=== PATIENT | male | born 1975 | race Two or more races ===

== ENCOUNTER 2019-05-13 23:44 | Inpatient (IN) | payer SELFPAY ==
[~2019-05-13] VITALS: Ht 182.9 cm; Wt 94.6 kg
[2019-05-14] VITALS (14 sets, daily range): BP systolic 91–117; BP diastolic 60–76
--- NOTE | 2019-05-14 00:05 | PHYS DOC ---
Past Medical History Past Medical History: No Pertinent History (JONH YOON APRN) Past Surgical History: No Surgical History (JONH YOON APRN) Alcohol Use: Occasionally Drug Use: None (JONH YOON APRN) Adult General Chief Complaint Chief Complaint: ABDOMINAL PAIN HPI HPI Patient is a 44 year old male who presents with last night began having right lower quadrant pain and vomiting. Patient currently rates his pain a 6 out of 10 and states it's a stabbing pain. Patient states it's right lower quadrant and it wraps around to his back. Patient states he has not had nothing to eat or drink at all today. (JONH YOON APRN) Review of Systems Review of Systems GI: RLQ abdominal pain that wraps around to Right flank, nausea, vomiting, denies bloody stools or diarrhea [] All other systems were reviewed and found to be within normal limits, except as documented in this note. (JONH YOON APRN) Current Medications Current Medications Current Medications Medications (Trade) Dose Ordered Sig/Kierra Start Time Stop Time Status Last Admin Dose Admin Fentanyl Citrate (Fentanyl 2ml Vial) 50 mcg 1X ONCE 05/14/19 00:30 05/14/19 00:18 DC 05/14/19 00:14 50 MCG Info (CONTRAST GIVEN -- Rx MONITORING) 1 each PRN DAILY PRN 05/14/19 00:15 05/16/19 00:14 Iohexol (Omnipaque 300 Mg/ml) 75 ml 1X ONCE 05/14/19 00:30 05/14/19 00:31 DC 05/14/19 00:54 75 ML Morphine Sulfate (Morphine Sulfate) 4 mg PRN Q2HR PRN 05/14/19 02:15 05/14/19 08:00 Ondansetron HCl (Zofran) 4 mg PRN Q8HRS PRN 05/14/19 02:15 05/14/19 08:00 Piperacillin Sod/ Tazobactam Sod 3.375 gm/Sodium Chloride 50 ml @ 100 mls/hr 1X ONCE 05/14/19 03:00 05/14/19 03:29 Sodium Chloride 1,000 ml @ 150 mls/hr Q6H40M 05/14/19 02:30 05/15/19 02:29 (MILLY AGUDELO MD) Allergies Allergies Allergies Coded Allergies Type Severity Reaction Last Updated Verified No Known Drug Allergies 12/14/15 No (MILLY AGUDELO MD) Physical Exam Physical Exam Constitutional: Well developed, well nourished, no acute distress, non-toxic appearance. [] Cardiovascular:Heart rate regular rhythm, no murmur [] Lungs & Thorax: Bilateral breath sounds clear to auscultation [] Abdomen: Bowel sounds normal, soft, RLQ tenderness, no masses, no pulsatile masses. [] Skin: Warm, dry, no erythema, no rash. [] Back: No tenderness, no CVA tenderness. [] Extremities: No tenderness, no cyanosis, no clubbing, ROM intact, no edema. [] Neurologic: Alert and oriented X 3, normal motor function, normal sensory func tion, no focal deficits noted. [] Psychologic: Affect normal, judgement normal, mood normal. [] (JONH YOON APRN) Current Patient Data Vital Signs Vital Signs Date Time Temp Pulse Resp B/P (MAP) Pulse Ox O2 Delivery O2 Flow Rate FiO2 05/14/19 00:14 16 95 Room Air 05/13/19 23:51 98.2 86 139/78 (98) 98.2 (MILLY AGUDELO MD) Lab Values Laboratory Tests Test 05/14/19 00:02 White Blood Count 12.1 x10^3/uL (4.0-11.0) H Red Blood Count 5.31 x10^6/uL (4.30-5.70) Hemoglobin 15.5 g/dL (13.0-17.5) Hematocrit 45.1 % (39.0-53.0) Mean Corpuscular Volume 85 fL (79-100) Mean Corpuscular Hemoglobin 29 pg (25-35) Mean Corpuscular Hemoglobin Concent 34 g/dL (31-37) Red Cell Distribution Width 14.0 % (11.5-14.5) Platelet Count 181 x10^3/uL (140-400) Neutrophils (%) (Auto) 77 % (31-73) H Lymphocytes (%) (Auto) 14 % (24-48) L Monocytes (%) (Auto) 8 % (0-9) Eosinophils (%) (Auto) 1 % (0-3) Basophils (%) (Auto) 1 % (0-3) Neutrophils # (Auto) 9.3 x10^3/uL (1.8-7.7) H Lymphocytes # (Auto) 1.7 x10^3/uL (1.0-4.8) Monocytes # (Auto) 1.0 x10^3/uL (0.0-1.1) Eosinophils # (Auto) 0.1 x10^3/uL (0.0-0.7) Basophils # (Auto) 0.1 x10^3/uL (0.0-0.2) Sodium Level 141 mmol/L (136-145) Potassium Level 3.8 mmol/L (3.5-5.1) Chloride Level 102 mmol/L (98-107) Carbon Dioxide Level 30 mmol/L (21-32) Anion Gap 9 (6-14) Blood Urea Nitrogen 14 mg/dL (8-26) Creatinine 0.9 mg/dL (0.7-1.3) Estimated GFR (Cockcroft-Gault) 92.5 BUN/Creatinine Ratio 16 (6-20) Glucose Level 93 mg/dL (70-99) Calcium Level 9.3 mg/dL (8.5-10.1) Total Bilirubin 1.3 mg/dL (0.2-1.0) H Aspartate Amino Transferase (AST) 16 U/L (15-37) Alanine Aminotransferase (ALT) 23 U/L (16-63) Alkaline Phosphatase 92 U/L (46-116) Total Protein 8.3 g/dL (6.4-8.2) H Albumin 4.1 g/dL (3.4-5.0) Albumin/Globulin Ratio 1.0 (1.0-1.7) Lipase 125 U/L (73-393) Laboratory Tests 05/14/19 00:02 Laboratory Tests 05/14/19 00:02 (MILLY AGUDELO MD) Lab Values Laboratory Tests Test 05/14/19 00:02 White Blood Count 12.1 x10^3/uL (4.0-11.0) H Red Blood Count 5.31 x10^6/uL (4.30-5.70) Hemoglobin 15.5 g/dL (13.0-17.5) Hematocrit 45.1 % (39.0-53.0) Mean Corpuscular Volume 85 fL (79-100) Mean Corpuscular Hemoglobin 29 pg (25-35) Mean Corpuscular Hemoglobin Concent 34 g/dL (31-37) Red Cell Distribution Width 14.0 % (11.5-14.5) Platelet Count 181 x10^3/uL (140-400) Neutrophils (%) (Auto) 77 % (31-73) H Lymphocytes (%) (Auto) 14 % (24-48) L Monocytes (%) (Auto) 8 % (0-9) Eosinophils (%) (Auto) 1 % (0-3) Basophils (%) (Auto) 1 % (0-3) Neutrophils # (Auto) 9.3 x10^3/uL (1.8-7.7) H Lymphocytes # (Auto) 1.7 x10^3/uL (1.0-4.8) Monocytes # (Auto) 1.0 x10^3/uL (0.0-1.1) Eosinophils # (Auto) 0.1 x10^3/uL (0.0-0.7) Basophils # (Auto) 0.1 x10^3/uL (0.0-0.2) Sodium Level 141 mmol/L (136-145) Potassium Level 3.8 mmol/L (3.5-5.1) Chloride Level 102 mmol/L (98-107) Carbon Dioxide Level 30 mmol/L (21-32) Anion Gap 9 (6-14) Blood Urea Nitrogen 14 mg/dL (8-26) Creatinine 0.9 mg/dL (0.7-1.3) Estimated GFR (Cockcroft-Gault) 92.5 BUN/Creatinine Ratio 16 (6-20) Glucose Level 93 mg/dL (70-99) Calcium Level 9.3 mg/dL (8.5-10.1) Total Bilirubin Pending Aspartate Amino Transferase (AST) Pending Alanine Aminotransferase (ALT) Pending Alkaline Phosphatase Pending Total Protein Pending Albumin Pending Albumin/Globulin Ratio Pending Lipase Pending Laboratory Tests 05/14/19 00:02 Laboratory Tests 05/14/19 00:02 (JONH YOON APRN) EKG EKG [] (JONH YOON APRN) Radiology/Procedures Radiology/Procedures [] (JONH YOON APRN) Radiology/Procedures [facility] [address] [place] [address] IMAGING REPORT Signed PATIENT: FRANK HUDSON ACCOUNT: [id number] : 1975 LOCATION: ER AGE: 44 SEX: M EXAM STATUS: REG ER ORD. PHYSICIAN: JONH YOON APRN REASON: RLQ PAIN PROCEDURE: CT ABD PELV W/ IV CONTRST ONLY EXAM: CT ABDOMEN/PELVIS WITH CONTRAST. HISTORY: Right lower quadrant pain. TECHNIQUE: Computed tomography of the abdomen and pelvis was performed after the intravenous administration of iodinated contrast. COMPARISON: None. FINDINGS: Lung windows through the visualized portions of the bases reveal mild atelectasis. Bone windows reveal no suspicious lesions. There are bilateral nondisplaced L5 pars interarticularis defects. The appendix is dilated with surrounding inflammation consistent with acute appendicitis. There is no drainable collection. There is no small bowel obstruction. There are no pathologically enlarged lymph nodes. The liver, gallbladder, pancreas, adrenal glands, spleen and kidneys are unremarkable. IMPRESSION: 1. Acute appendicitis. *One or more of the following individualized dose reduction techniques were utilized for this examination: 1. Automated exposure control. 2. Adjustment of the mA and/or kV according to patient size. 3. Use of iterative reconstruction technique. Electronically signed by: Ju Laws MD (05/14/2019 1:38 AM) [facility] DICTATED and SIGNED BY: JULIANNA LAWS MD DATE: 05/14/19 0138 (MILLY AGUDELO MD) Course & Med Decision Making Course & Med Decision Making Patient is a 44 year old male who presents with last night began having right lower quadrant pain and vomiting. Patient currently rates his pain a 6 out of 10 and states it's a stabbing pain. Patient states it's right lower quadrant and it wraps around to his back. Patient states he has not had nothing to eat or drink at all today. Alert and oriented. Skin pink warm and dry. Right lower quad rant tender to palpation. No rebound tenderness. No extremity edema. Lungs are clear to auscultation all lobes. No CVA tenderness. Speaks in full clear sentences. Patient denies taking any medications before he came today. Patient denies chest pain, shortness of air, fever, diarrhea, constipation, dysuria. 0030: Patient reported off to Dr Agudelo for continuation of care. (JONH YOON APRN) Course & Med Decision Making CT of abdomen showed acute appendicitis. Patient was provided with pain medication given a liter. on-call surgeon was consulted at 0203 and agreed with starting Zosyn and IV fluid.Patient requiring admission for further evaluation and treatment. Discussed with Dr. Coles who is in agreement with admission. Discussed findings and plan with patient and family, who acknowledge understanding and agreement. (MILLY AGUDELO MD) Dragon Disclaimer Dragon Disclaimer This electronic medical record was generated, in whole or in part, using a voice recognition dictation system. (JONH YOON APRN) Departure Departure Impression: Primary Impression: Acute appendicitis Disposition: ADMITTED INPATIENT (at 0 150) Admitting Physician: RICKIE (Dr. Coles accepted admission) (MILLY AGUDELO MD) Condition: IMPROVED Referrals: NO PCP (PCP) Problem Qualifiers Primary Impression: Acute appendicitis Acute appendicitis type: unspecified acute appendicitis type Qualified Codes: K35.80 - Unspecified acute appendicitis JONH YOON APRN May 14, 2019 00:05 MILLY AGUDELO MD May 14, 2019 01:59
[2019-05-14] MEDS ORDERED: CONTRAST GIVEN. MC PRN (00:15)
[2019-05-14 00:27] LABS: BASO # 0.1 x10^3/uL (0.0-0.2); BASO % 1 % (0-3); EOS # 0.1 x10^3/uL (0.0-0.7); EOS % 1 % (0-3); HEMATOCRIT 45.1 % (39.0-53.0); HEMOGLOBIN 15.5 g/dL (13.0-17.5); LYMPH # 1.7 x10^3/uL (1.0-4.8); LYMPH % 14 % (24-48); MEAN CORPUSCULAR HEMOGLOBIN 29 pg (25-35); MEAN CORPUSCULAR HGB CONC 34 g/dL (31-37); MEAN CORPUSCULAR VOLUME 85 fL (79-100); MONO % 8 % (0-9); NEUT # 9.3 x10^3/uL (1.8-7.7); NEUT % 77 % (31-73); PLATELET COUNT 181 x10^3/uL (140-400); RED BLOOD COUNT 5.31 x10^6/uL (4.30-5.70); WHITE BLOOD COUNT 12.1 x10^3/uL (4.0-11.0)
[2019-05-14 00:28] LABS: CALCIUM 9.3 mg/dL (8.5-10.1); CREATININE 0.9 mg/dL (0.7-1.3); GFR 92.5; POTASSIUM 3.8 mmol/L (3.5-5.1)
[2019-05-14] MEDS ORDERED: fentaNYL PF VIAL 100 MCG/2 ML VIAL IV ONE (00:30)
[2019-05-14] MEDS ORDERED: IOHEXOL 300 MG/ML 100ML VIAL. IV ONE ×2 (00:30→07:00)
[2019-05-14] MEDS ORDERED: ONDANSETRON PF 4 MG/2 ML VIAL. IV ONE (00:30)
[2019-05-14] MEDS ORDERED: IV NORMAL SALINE 1000ML BAG 1,000 ML IV SCH (00:30)
[2019-05-14 00:35] LABS: ALBUMIN 4.1 g/dL (3.4-5.0); TOTAL BILIRUBIN 1.3 mg/dL (0.2-1.0); TOTAL PROTEIN 8.3 g/dL (6.4-8.2)
[2019-05-14] MEDS ORDERED: IV NORMAL SALINE 1000ML BAG 1,000 ML IV ONE (01:00)
--- NOTE | 2019-05-14 01:40 | RAD ---
EXAM: CT ABDOMEN/PELVIS WITH CONTRAST. HISTORY: Right lower quadrant pain. TECHNIQUE: Computed tomography of the abdomen and pelvis was performed after the intravenous administration of iodinated contrast. COMPARISON: None. FINDINGS: Lung windows through the visualized portions of the bases reveal mild atelectasis. Bone windows reveal no suspicious lesions. There are bilateral nondisplaced L5 pars interarticularis defects. The appendix is dilated with surrounding inflammation consistent with acute appendicitis. There is no drainable collection. There is no small bowel obstruction. There are no pathologically enlarged lymph nodes. The liver, gallbladder, pancreas, adrenal glands, spleen and kidneys are unremarkable. IMPRESSION: 1. Acute appendicitis. *One or more of the following individualized dose reduction techniques were utilized for this examination: 1. Automated exposure control. 2. Adjustment of the mA and/or kV according to patient size. 3. Use of iterative reconstruction technique. Electronically signed by: Ju Laws MD (05/14/2019 1:38 AM) [facility]
[2019-05-14] MEDS ORDERED: MORPHINE SULFATE 4 MG/ML VIAL. IV PRN (02:15)
[2019-05-14] MEDS ORDERED: ONDANSETRON PF 4 MG/2 ML VIAL. IV PRN ×3 (02:15→11:15)
[2019-05-14] MEDS ORDERED: PIPERACILLIN/TAZOBACTAM 3.375 GM in IV NORMAL SALINE 50ML 50 ML IV ONE (03:00)
[2019-05-14] MEDS: IV NORMAL SALINE 1000ML BAG 1,000 ML IV SCH ×5 (03:28→22:30)
[2019-05-14] MEDS ORDERED: IOHEXOL 300 MG/ML 100ML VIAL. ONE (06:26)
[2019-05-14 06:41] LABS: BILIRUBIN,URINE NEGATIVE (NEG); CLARITY,URINE CLEAR; COLOR,URINE YELLOW; NITRITE,URINE NEGATIVE (NEG); PROTEIN,URINE NEGATIVE (NEG-TRACE)
[2019-05-14 06:48] LABS: BARBITURATES NEG (NEG); BENZODIAZEPINES NEG (NEG); CANNABINOIDS NEG (NEG); COCAINE NEG (NEG); METHADONE NEG (NEG); OPIATES NEG (NEG); PHENCYCLIDINE NEG (NEG)
[2019-05-14 06:51] LABS: AMPHETAMINE/METHAMPHETAMINE NEG (NEG)
[2019-05-14 07:14] LABS: SQUAMOUS EPITHELIAL CELL,UR OCC /LPF
[2019-05-14 07:15] LABS: BACTERIA,URINE FEW /HPF (0-FEW)
[2019-05-14] MEDS ORDERED: cefOXitin SODIUM IV Push 2 GM VIAL. IVP ONE (08:45)
[2019-05-14] MEDS ORDERED: FLU VAX QS 2019-20 (36MOS+)/PF 0.5 ML SYRINGE. VAX IM ONE (09:00)
--- NOTE | 2019-05-14 09:18 | PDOC2 ---
CONSULT Date of Consult Date of Consult DATE: 05/14/19 TIME: 09:15 Reason for Consult Reason for Consult: appendicitis Referring Physician Referring Physician: Dr. Coles Identification/Chief Complaint Chief Complaint RLQ abd pain Source Source: Chart review, Patient History of Present Illness Reason for Visit: 44 yo M with c/o abd pain localizing RLQ since 05/12. No previous episodes. Past Medical History Cardiovascular: No pertinent hx Past Surgical History Past Surgical History: No pertinent history Family History Family History: No Significant Social History No ALCOHOL: social Current Medications Current Medications Current Medications Sodium Chloride 1,000 ml @ 1,000 mls/hr Q1H IV Last administered on 05/14/19at 00:15; Start 05/14/19 at 00:30; Stop 05/14/19 at 01:29; Status DC Fentanyl Citrate (Fentanyl 2ml Vial) 50 mcg 1X ONCE IV Last administered on 05/14/19at 00:14; Start 05/14/19 at 00:30; Stop 05/14/19 at 00:18; Status DC Ondansetron HCl (Zofran) 4 mg 1X ONCE IV Last administered on 05/14/19at 00:14; Start 05/14/19 at 00:30; Stop 05/14/19 at 00:18; Status DC Iohexol (Omnipaque 300 Mg/ml) 75 ml 1X ONCE IV Last administered on 05/14/19at 00:54; Start 05/14/19 at 00:30; Stop 05/14/19 at 00:31; Status DC Info (CONTRAST GIVEN -- Rx MONITORING) 1 each PRN DAILY PRN MC SEE COMMENTS; Start 05/14/19 at 00:15; Stop 05/16/19 at 00:14 Sodium Chloride 1,000 ml @ 1,000 mls/hr 1X ONCE IV Last administered on 05/14/19at 01:11; Start 05/14/19 at 01:00; Stop 05/14/19 at 01:59; Status DC Ondansetron HCl (Zofran) 4 mg PRN Q8HRS PRN IV NAUSEA/VOMITING 1ST CHOICE; Start 05/14/19 at 02:15; Stop 05/14/19 at 08:00; Status DC Morphine Sulfate (Morphine Sulfate) 4 mg PRN Q2HR PRN IV SEVERE PAIN 7-10; Start 05/14/19 at 02:15; Stop 05/14/19 at 08:00; Status DC Sodium Chloride 1,000 ml @ 150 mls/hr Q6H40M IV Last administered on 05/14/19at 03:28; Start 05/14/19 at 02:30; Stop 05/15/19 at 02:29 Piperacillin Sod/ Tazobactam Sod 3.375 gm/Sodium Chloride 50 ml @ 100 mls/hr 1X ONCE IV Last administered on 05/14/19at 03:28; Start 05/14/19 at 03:00; Stop 05/14/19 at 03:29; Status DC Influenza Virus Vaccine Quadrival (Afluria Quad 2019-20 (3yr Up) Syringe) 0.5 ml ONCE ONCE VAX IM ; Start 05/14/19 at 09:00; Stop 05/14/19 at 09:01; Status DC Iohexol (Omnipaque 300 Mg/ml) 100 ml STK-MED ONCE .ROUTE ; Start 05/14/19 at 06:26; Stop 05/14/19 at 06:26; Status DC Iohexol (Omnipaque 300 Mg/ml) 75 ml 1X ONCE IV ; Start 05/14/19 at 07:00; Stop 05/14/19 at 07:01; Status DC Cefoxitin Sodium (Mefoxin) 2 gm 1X PREOP ONCE IVP ; Start 05/14/19 at 08:45; Stop 05/14/19 at 08:46; Status DC Active Scripts Active Reported No Known Medications Prior To Admisstion (Info) Each 1 Each 1X Allergies Allergies: Coded Allergies: No Known Drug Allergies (Unverified , 12/14/15) ROS Gastrointestinal: Yes Abdominal Pain Physical Exam General: Alert, Oriented X3, Cooperative, mild distress HEENT: Atraumatic, EOMI Abdomen: Soft, Other (TTP RLQ) Extremities: No clubbing, No cyanosis Skin: No rashes, No breakdown Neuro: Normal speech, Sensation intact Psych/Mental Status: Mental status NL, Mood NL Vitals VITALS Vital Signs Date Time Temp Pulse Resp B/P (MAP) Pulse Ox O2 Delivery O2 Flow Rate FiO2 05/14/19 08:09 Room Air 05/14/19 07:00 98.3 88 18 108/76 (87) 95 98.3 Labs Labs Laboratory Tests Test 05/14/19 00:02 05/14/19 06:15 White Blood Count 12.1 x10^3/uL (4.0-11.0) Red Blood Count 5.31 x10^6/uL (4.30-5.70) Hemoglobin 15.5 g/dL (13.0-17.5) Hematocrit 45.1 % (39.0-53.0) Mean Corpuscular Volume 85 fL (79-100) Mean Corpuscular Hemoglobin 29 pg (25-35) Mean Corpuscular Hemoglobin Concent 34 g/dL (31-37) Red Cell Distribution Width 14.0 % (11.5-14.5) Platelet Count 181 x10^3/uL (140-400) Neutrophils (%) (Auto) 77 % (31-73) Lymphocytes (%) (Auto) 14 % (24-48) Monocytes (%) (Auto) 8 % (0-9) Eosinophils (%) (Auto) 1 % (0-3) Basophils (%) (Auto) 1 % (0-3) Neutrophils # (Auto) 9.3 x10^3/uL (1.8-7.7) Lymphocytes # (Auto) 1.7 x10^3/uL (1.0-4.8) Monocytes # (Auto) 1.0 x10^3/uL (0.0-1.1) Eosinophils # (Auto) 0.1 x10^3/uL (0.0-0.7) Basophils # (Auto) 0.1 x10^3/uL (0.0-0.2) Sodium Level 141 mmol/L (136-145) Potassium Level 3.8 mmol/L (3.5-5.1) Chloride Level 102 mmol/L (98-107) Carbon Dioxide Level 30 mmol/L (21-32) Anion Gap 9 (6-14) Blood Urea Nitrogen 14 mg/dL (8-26) Creatinine 0.9 mg/dL (0.7-1.3) Estimated GFR (Cockcroft-Gault) 92.5 BUN/Creatinine Ratio 16 (6-20) Glucose Level 93 mg/dL (70-99) Calcium Level 9.3 mg/dL (8.5-10.1) Total Bilirubin 1.3 mg/dL (0.2-1.0) Aspartate Amino Transf (AST/SGOT) 16 U/L (15-37) Alanine Aminotransferase (ALT/SGPT) 23 U/L (16-63) Alkaline Phosphatase 92 U/L (46-116) Total Protein 8.3 g/dL (6.4-8.2) Albumin 4.1 g/dL (3.4-5.0) Albumin/Globulin Ratio 1.0 (1.0-1.7) Lipase 125 U/L (73-393) Urine Collection Type Unknown Urine Color Yellow Urine Clarity Clear Urine pH 6.0 Urine Specific [place] >=1.030 Urine Protein Negative mg/dL (NEG-TRACE) Urine Glucose (UA) Negative mg/dL (NEG) Urine Ketones (Stick) 15 mg/dL (NEG) Urine Blood Negative (NEG) Urine Nitrite Negative (NEG) Urine Bilirubin Negative (NEG) Urine Urobilinogen Dipstick 2.0 mg/dL (0.2 mg/dL) Urine Leukocyte Esterase Negative (NEG) Urine RBC 1-2 /HPF (0-2) Urine WBC 1-4 /HPF (0-4) Urine Squamous Epithelial Cells Occ /LPF Urine Bacteria Few /HPF (0-FEW) Urine Mucus Slight /LPF Urine Opiates Screen Neg (NEG) Urine Methadone Screen Neg (NEG) Urine Barbiturates Neg (NEG) Urine Phencyclidine Screen Neg (NEG) Urine Amphetamine/Methamphetamine Neg (NEG) Urine Benzodiazepines Screen Neg (NEG) Urine Cocaine Screen Neg (NEG) Urine Cannabinoids Screen Neg (NEG) Urine Ethyl Alcohol Neg (NEG) Laboratory Tests Test 05/14/19 00:02 05/14/19 06:15 White Blood Count 12.1 x10^3/uL (4.0-11.0) Red Blood Count 5.31 x10^6/uL (4.30-5.70) Hemoglobin 15.5 g/dL (13.0-17.5) Hematocrit 45.1 % (39.0-53.0) Mean Corpuscular Volume 85 fL (79-100) Mean Corpuscular Hemoglobin 29 pg (25-35) Mean Corpuscular Hemoglobin Concent 34 g/dL (31-37) Red Cell Distribution Width 14.0 % (11.5-14.5) Platelet Count 181 x10^3/uL (140-400) Neutrophils (%) (Auto) 77 % (31-73) Lymphocytes (%) (Auto) 14 % (24-48) Monocytes (%) (Auto) 8 % (0-9) Eosinophils (%) (Auto) 1 % (0-3) Basophils (%) (Auto) 1 % (0-3) Neutrophils # (Auto) 9.3 x10^3/uL (1.8-7.7) Lymphocytes # (Auto) 1.7 x10^3/uL (1.0-4.8) Monocytes # (Auto) 1.0 x10^3/uL (0.0-1.1) Eosinophils # (Auto) 0.1 x10^3/uL (0.0-0.7) Basophils # (Auto) 0.1 x10^3/uL (0.0-0.2) Sodium Level 141 mmol/L (136-145) Potassium Level 3.8 mmol/L (3.5-5.1) Chloride Level 102 mmol/L (98-107) Carbon Dioxide Level 30 mmol/L (21-32) Anion Gap 9 (6-14) Blood Urea Nitrogen 14 mg/dL (8-26) Creatinine 0.9 mg/dL (0.7-1.3) Estimated GFR (Cockcroft-Gault) 92.5 BUN/Creatinine Ratio 16 (6-20) Glucose Level 93 mg/dL (70-99) Calcium Level 9.3 mg/dL (8.5-10.1) Total Bilirubin 1.3 mg/dL (0.2-1.0) Aspartate Amino Transf (AST/SGOT) 16 U/L (15-37) Alanine Aminotransferase (ALT/SGPT) 23 U/L (16-63) Alkaline Phosphatase 92 U/L (46-116) Total Protein 8.3 g/dL (6.4-8.2) Albumin 4.1 g/dL (3.4-5.0) Albumin/Globulin Ratio 1.0 (1.0-1.7) Lipase 125 U/L (73-393) Urine Collection Type Unknown Urine Color Yellow Urine Clarity Clear Urine pH 6.0 Urine Specific [place] >=1.030 Urine Protein Negative mg/dL (NEG-TRACE) Urine Glucose (UA) Negative mg/dL (NEG) Urine Ketones (Stick) 15 mg/dL (NEG) Urine Blood Negative (NEG) Urine Nitrite Negative (NEG) Urine Bilirubin Negative (NEG) Urine Urobilinogen Dipstick 2.0 mg/dL (0.2 mg/dL) Urine Leukocyte Esterase Negative (NEG) Urine RBC 1-2 /HPF (0-2) Urine WBC 1-4 /HPF (0-4) Urine Squamous Epithelial Cells Occ /LPF Urine Bacteria Few /HPF (0-FEW) Urine Mucus Slight /LPF Urine Opiates Screen Neg (NEG) Urine Methadone Screen Neg (NEG) Urine Barbiturates Neg (NEG) Urine Phencyclidine Screen Neg (NEG) Urine Amphetamine/Methamphetamine Neg (NEG) Urine Benzodiazepines Screen Neg (NEG) Urine Cocaine Screen Neg (NEG) Urine Cannabinoids Screen Neg (NEG) Urine Ethyl Alcohol Neg (NEG) Images Images CT c/w appendicitis Assessment/Plan Assessment/Plan appendicitis IV abx started with some improvement TO OR for laparoscopic versus open appendectomy. R/R/B/A d/w pt. Risks, including, but not limited to: bleeding, infection, damage to surrounding structures, risk of anesthesia, risk of open, risk . He appears to understand, his questions are answered and he elects to proceed. Thanks for consult! REGGIE LEMONS MD May 14, 2019 09:18
[2019-05-14] MEDS ORDERED: fentaNYL PF VIAL 100 MCG/2 ML VIAL IV PRN ×2 (09:30)
[2019-05-14] MEDS ORDERED: PROCHLORPERAZINE 10 MG/2 ML VIAL. IV PRN (09:30)
[2019-05-14] MEDS ORDERED: HYDROmorphone 2 MG/ML VIAL IV PRN (09:30)
[2019-05-14] MEDS ORDERED: IV RINGERS,LACTATED 1000ML 1,000 ML IV SCH (09:30)
[2019-05-14] MEDS ORDERED: LIDOCAINE 1% PF 2 ML VIAL. ID PRN (09:30)
[2019-05-14] MEDS ORDERED: MORPHINE SULFATE 2 MG/ML VIAL. IV PRN ×2 (09:30→11:15)
[2019-05-14] MEDS ORDERED: PROPOFOL 20 ML IV ONE (09:40)
[2019-05-14] MEDS ORDERED: fentaNYL PF VIAL 100 MCG/2 ML VIAL ONE ×2 (09:40→11:19)
[2019-05-14] MEDS ORDERED: ROCURONIUM 50 MG/5 ML VIAL. ONE (09:40)
[2019-05-14] MEDS ORDERED: LIDOCAINE 2% PF 5 ML VIAL. ONE (09:40)
[2019-05-14] MEDS ORDERED: SUCCINYLCHOLINE 200 MG/10 ML VIAL. ONE (09:40)
[2019-05-14] MEDS ORDERED: BUPIVACAINE MPF 0.5% 30 ML VIAL. ONE (09:42)
[2019-05-14] MEDS ORDERED: DESFLURANE 31 TO 60 MINUTES IH ONE (10:16)
[2019-05-14] MEDS ORDERED: DEXAMETHASONE SOD PHOS 4 MG/ML VIAL ONE (10:16)
[2019-05-14] MEDS ORDERED: GLYCOPYRROLATE 1 MG/5 ML VIAL. ONE (10:25)
[2019-05-14] MEDS ORDERED: NEOSTIGMINE METHYLSULFATE 5 MG/5 ML SYRINGE. ONE (10:26)
--- NOTE | 2019-05-14 10:41 | PDOC1 ---
History and Physical Date of Admission Date of Admission DATE: 05/14/19 TIME: 10:40 Identification/Chief Complaint Chief Complaint seen in er , 44 year old male who presents with last night began having right lower quadrant pain and vomiting. ct c/w acute appendicitis Past Medical History Past Medical History Past Medical History: No Pertinent History Past Surgical History: No Surgical History Alcohol Use: Occasionally Drug Use: None fhx htn Cardiovascular: No pertinent hx Past Surgical History Past Surgical History: No pertinent history Family History Family History: No Significant, Hypertension Social History Smoke: No ALCOHOL: social Drugs: None Current Medications Current Medications Current Medications Sodium Chloride 1,000 ml @ 1,000 mls/hr Q1H IV Last administered on 05/14/19at 00:15; Start 05/14/19 at 00:30; Stop 05/14/19 at 01:29; Status DC Fentanyl Citrate (Fentanyl 2ml Vial) 50 mcg 1X ONCE IV Last administered on 05/14/19at 00:14; Start 05/14/19 at 00:30; Stop 05/14/19 at 00:18; Status DC Ondansetron HCl (Zofran) 4 mg 1X ONCE IV Last administered on 05/14/19at 00:14; Start 05/14/19 at 00:30; Stop 05/14/19 at 00:18; Status DC Iohexol (Omnipaque 300 Mg/ml) 75 ml 1X ONCE IV Last administered on 05/14/19at 00:54; Start 05/14/19 at 00:30; Stop 05/14/19 at 00:31; Status DC Info (CONTRAST GIVEN -- Rx MONITORING) 1 each PRN DAILY PRN MC SEE COMMENTS; Benedict tart 05/14/19 at 00:15; Stop 05/16/19 at 00:14 Sodium Chloride 1,000 ml @ 1,000 mls/hr 1X ONCE IV Last administered on 05/14/19at 01:11; Start 05/14/19 at 01:00; Stop 05/14/19 at 01:59; Status DC Ondansetron HCl (Zofran) 4 mg PRN Q8HRS PRN IV NAUSEA/VOMITING 1ST CHOICE; Start 05/14/19 at 02:15; Stop 05/14/19 at 08:00; Status DC Morphine Sulfate (Morphine Sulfate) 4 mg PRN Q2HR PRN IV SEVERE PAIN 7-10; Start 05/14/19 at 02:15; Stop 05/14/19 at 08:00; Status DC Sodium Chloride 1,000 ml @ 150 mls/hr Q6H40M IV Last administered on 05/14/19at 03:28; Start 05/14/19 at 02:30; Stop 05/15/19 at 02:29 Piperacillin Sod/ Tazobactam Sod 3.375 gm/Sodium Chloride 50 ml @ 100 mls/hr 1X ONCE IV Last administered on 05/14/19at 03:28; Start 05/14/19 at 03:00; Stop 05/14/19 at 03:29; Status DC Influenza Virus Vaccine Quadrival (Afluria Quad 2019-20 (3yr Up) Syringe) 0.5 ml ONCE ONCE VAX IM ; Start 05/14/19 at 09:00; Stop 05/14/19 at 09:01; Status DC Iohexol (Omnipaque 300 Mg/ml) 100 ml STK-MED ONCE .ROUTE ; Start 05/14/19 at 06:26; Stop 05/14/19 at 06:26; Status DC Iohexol (Omnipaque 300 Mg/ml) 75 ml 1X ONCE IV ; Start 05/14/19 at 07:00; Stop 05/14/19 at 07:01; Status DC Cefoxitin Sodium (Mefoxin) 2 gm 1X PREOP ONCE IVP ; Start 05/14/19 at 08:45; Stop 05/14/19 at 08:46; Status DC Ondansetron HCl (Zofran) 4 mg PRN Q6HRS PRN IV NAUSEA/VOMITING; Start 05/14/19 at 09:30; Stop 05/15/19 at 09:29 Fentanyl Citrate (Fentanyl 2ml Vial) 25 mcg PRN Q5MIN PRN IV MILD PAIN 1-3; Start 05/14/19 at 09:30; Stop 05/15/19 at 09:29 Fentanyl Citrate (Fentanyl 2ml Vial) 50 mcg PRN Q5MIN PRN IV MODERATE TO SEVERE PAIN; Start 05/14/19 at 09:30; Stop 05/15/19 at 09:29 Morphine Sulfate (Morphine Sulfate) 1 mg PRN Q10MIN PRN IV SEVERE PAIN 7-10; Start 05/14/19 at 09:30; Stop 05/15/19 at 09:29 Ringer's Solution 1,000 ml @ 30 mls/hr Q24H IV ; Start 05/14/19 at 09:30; Stop 05/14/19 at 21:29 Lidocaine HCl (Xylocaine-Mpf 1% 2ml Vial) 2 ml PRN 1X PRN ID PRIOR TO IV START; Start 05/14/19 at 09:30; Stop 05/15/19 at 09:29 Hydromorphone HCl (Dilaudid) 0.5 mg PRN Q10MIN PRN IV SEV PAIN, Second choice; Start 05/14/19 at 09:30; Stop 05/15/19 at 09:29 Prochlorperazine Edisylate (Compazine) 5 mg PACU PRN PRN IV NAUSEA, MRX1; Start 05/14/19 at 09:30; Stop 05/15/19 at 09:29 Propofol 20 ml @ As Directed STK-MED ONCE IV ; Start 05/14/19 at 09:40; Stop 05/14/19 at 09:40; Status DC Lidocaine HCl (Lidocaine Pf 2% Vial) 5 ml STK-MED ONCE .ROUTE ; Start 05/14/19 at 09:40; Stop 05/14/19 at 09:40; Status DC Fentanyl Citrate (Fentanyl 2ml Vial) 100 mcg STK-MED ONCE .ROUTE ; Start 05/14/19 at 09:40; Stop 05/14/19 at 09:40; Status DC Succinylcholine Chloride (Anectine) 200 mg STK-MED ONCE .ROUTE ; Start 05/14/19 at 09:40; Stop 05/14/19 at 09:40; Status DC Rocuronium Hope (Zemuron) 50 mg STK-MED ONCE .ROUTE ; Start 05/14/19 at 09:40; Stop 05/14/19 at 09:40; Status DC Bupivacaine HCl (Sensorcaine Mpf 0.5%) 30 ml STK-MED ONCE .ROUTE ; Start 05/14/19 at 09:42; Stop 05/14/19 at 09:43; Status DC Dexamethasone Sodium Phosphate (Decadron) 4 mg STK-MED ONCE .ROUTE ; Start 05/14/19 at 10:16; Stop 05/14/19 at 10:17; Status DC Desflurane (Suprane) 30 ml STK-MED ONCE IH ; Start 05/14/19 at 10:16; Stop 05/14/19 at 10:17; Status DC Glycopyrrolate (Robinul) 1 mg STK-MED ONCE .ROUTE ; Start 05/14/19 at 10:25; Stop 05/14/19 at 10:26; Status DC Neostigmine Methylsulfate (Neostigmine Methylsulfate) 5 mg STK-MED ONCE .ROUTE ; Start 05/14/19 at 10:26; Stop 05/14/19 at 10:26; Status DC Active Scripts Active Reported No Known Medications Prior To Admisstion (Info) Each 1 Each MC 1X Allergies Allergies: Coded Allergies: No Known Drug Allergies (Unverified , 12/14/15) ROS General: No: Chills, Night Sweats, Fatigue, Malaise, Appetite, Other PSYCHOLOGICAL ROS: No: Anxiety, Behavioral Disorder, Concentration difficultie, Decreased libido, Depression, Disorientation, Hallucinations, Hostility, Irritablity, Memory difficulties, Mood Swings, Obsessive thoughts, Physical abuse, Sexual abuse, Sleep disturbances, Suicidal ideation, Other Eyes: No Blurry vision, No Decreased vision, No Double vision, No Dry eyes, No Excessive tearing, No Eye Pain, No Itchy Eyes, No Loss of vision, No Photophobia , No Scotomata, No Uses contacts, No Uses glasses, No Other HEENT: No: Heacaches, Visual Changes, Hearing change, Nasal congestion, Nasal discharge, Oral lesions, Sinus pain, Sore Throat, Epistaxis, Sneezing, Snoring, Tinnitus, Vertigo, Vocal changes, Other ALLERGY AND IMMUNOLOGY: No: Hives, Insect Bite Sensitivity, Itchy/Watery Eyes, Nasal Congestion, Post Nasal Drip, Seasonal Allergies, Other Hematological and Lymphatic: No: Bleeding Problems, Blood Clots, Blood Transfusions, Brusing, Night Sweats, Pallor, Swollen Lymph Nodes, Other ENDOCRINE: No: Breast Changes, Galactorrhea, Hair Pattern Changes, Hot Flashes, Malaise/lethargy, Mood Swings, Palpitations, Polydipsia/polyuria, Skin Changes, Temperature Intolerance, Unexpected Weight Changes, Other Breast: No New/Changing Breast Lumps, No Nipple changes, No Nipple discharge, No Other Respiratory: No: Cough, Hemoptysis, Orthopnea, Pleuritic Pain, Shortness of breath, SOB with excertion, Sputum Changes, Stridor, Tachypnea, Wheezing, Other Gastrointestinal: Yes Nausea, Yes Abdominal Pain; No Vomiting, No Diarrhea, No Constipation, No Melena, No Hematochezia, No Other Musculoskeletal: No Gait Disturbance, No Joint Pain, No Joint Stiffness, No Joint Swelling, No Muscle Pain, No Muscular Weakness, No Pain In:, No Swelling In:, No Other Neurological: No Behavorial Changes, No Bowel/Bladder ControlChng, No Confusion, No Dizziness, No Gait Disturbance, No Headaches, No Impaired Coord/balance, No Memory Loss, No Numbness/Tingling, No Seizures, No Speech Problems, No Tremors, No Visual Changes, No Weakness, No Other Skin: No Dry Skin, No Eczema, No Hair Changes, No Lumps, No Mole Changes, No Mottling, No Nail Changes, No Pruritus, No Rash, No Skin Lesion Changes, No Other, No Acne Physical Exam Physical Exam Physical Exam Physical Exam Constitutional: Well developed, well nourished, no acute distress, non-toxic appearance. [] Cardiovascular:Heart rate regular rhythm, no murmur [] Lungs & Thorax: Bilateral breath sounds clear to auscultation [] Abdomen: Bowel sounds normal, soft, RLQ tenderness, no masses, no pulsatile masses. [] Skin: Warm, dry, no erythema, no rash. [] Back: No tenderness, no CVA tenderness. [] Extremities: No tenderness, no cyanosis, no clubbing, ROM intact, no edema. [] Neurologic: Alert and oriented X 3, normal motor function, normal sensory function, no focal deficits noted. [] Psychologic: Affect normal, judgement normal, mood normal. [] General: Cooperative HEENT: Atraumatic, EOMI, Mucous membr. moist/pink Lungs: Clear to auscultation, Normal air movement Heart: RRR, no thrills PELVIC: Examination not indicated Extremities: No cyanosis Neuro: Normal speech, Cranial nerves 3-12 NL Psych/Mental Status: Mental status NL, Mood NL Vitals Vitals Vital Signs Date Time Temp Pulse Resp B/P (MAP) Pulse Ox O2 Delivery O2 Flow Rate FiO2 05/14/19 08:09 Room Air 05/14/19 07:00 98.3 88 18 108/76 (87) 95 98.3 Labs Labs Laboratory Tests Test 05/14/19 00:02 05/14/19 06:15 White Blood Count 12.1 x10^3/uL (4.0-11.0) Red Blood Count 5.31 x10^6/uL (4.30-5.70) Hemoglobin 15.5 g/dL (13.0-17.5) Hematocrit 45.1 % (39.0-53.0) Mean Corpuscular Volume 85 fL (79-100) Mean Corpuscular Hemoglobin 29 pg (25-35) Mean Corpuscular Hemoglobin Concent 34 g/dL (31-37) Red Cell Distribution Width 14.0 % (11.5-14.5) Platelet Count 181 x10^3/uL (140-400) Neutrophils (%) (Auto) 77 % (31-73) Lymphocytes (%) (Auto) 14 % (24-48) Monocytes (%) (Auto) 8 % (0-9) Eosinophils (%) (Auto) 1 % (0-3) Basophils (%) (Auto) 1 % (0-3) Neutrophils # (Auto) 9.3 x10^3/uL (1.8-7.7) Lymphocytes # (Auto) 1.7 x10^3/uL (1.0-4.8) Monocytes # (Auto) 1.0 x10^3/uL (0.0-1.1) Eosinophils # (Auto) 0.1 x10^3/uL (0.0-0.7) Basophils # (Auto) 0.1 x10^3/uL (0.0-0.2) Sodium Level 141 mmol/L (136-145) Potassium Level 3.8 mmol/L (3.5-5.1) Chloride Level 102 mmol/L (98-107) Carbon Dioxide Level 30 mmol/L (21-32) Anion Gap 9 (6-14) Blood Urea Nitrogen 14 mg/dL (8-26) Creatinine 0.9 mg/dL (0.7-1.3) Estimated GFR (Cockcroft-Gault) 92.5 BUN/Creatinine Ratio 16 (6-20) Glucose Level 93 mg/dL (70-99) Calcium Level 9.3 mg/dL (8.5-10.1) Total Bilirubin 1.3 mg/dL (0.2-1.0) Aspartate Amino Transf (AST/SGOT) 16 U/L (15-37) Alanine Aminotransferase (ALT/SGPT) 23 U/L (16-63) Alkaline Phosphatase 92 U/L (46-116) Total Protein 8.3 g/dL (6.4-8.2) Albumin 4.1 g/dL (3.4-5.0) Albumin/Globulin Ratio 1.0 (1.0-1.7) Lipase 125 U/L (73-393) Urine Collection Type Unknown Urine Color Yellow Urine Clarity Clear Urine pH 6.0 Urine Specific [place] >=1.030 Urine Protein Negative mg/dL (NEG-TRACE) Urine Glucose (UA) Negative mg/dL (NEG) Urine Ketones (Stick) 15 mg/dL (NEG) Urine Blood Negative (NEG) Urine Nitrite Negative (NEG) Urine Bilirubin Negative (NEG) Urine Urobilinogen Dipstick 2.0 mg/dL (0.2 mg/dL) Urine Leukocyte Esterase Negative (NEG) Urine RBC 1-2 /HPF (0-2) Urine WBC 1-4 /HPF (0-4) Urine Squamous Epithelial Cells Occ /LPF Urine Bacteria Few /HPF (0-FEW) Urine Mucus Slight /LPF Urine Opiates Screen Neg (NEG) Urine Methadone Screen Neg (NEG) Urine Barbiturates Neg (NEG) Urine Phencyclidine Screen Neg (NEG) Urine Amphetamine/Methamphetamine Neg (NEG) Urine Benzodiazepines Screen Neg (NEG) Urine Cocaine Screen Neg (NEG) Urine Cannabinoids Screen Neg (NEG) Urine Ethyl Alcohol Neg (NEG) Laboratory Tests Test 05/14/19 00:02 05/14/19 06:15 White Blood Count 12.1 x10^3/uL (4.0-11.0) Red Blood Count 5.31 x10^6/uL (4.30-5.70) Hemoglobin 15.5 g/dL (13.0-17.5) Hematocrit 45.1 % (39.0-53.0) Mean Corpuscular Volume 85 fL (79-100) Mean Corpuscular Hemoglobin 29 pg (25-35) Mean Corpuscular Hemoglobin Concent 34 g/dL (31-37) Red Cell Distribution Width 14.0 % (11.5-14.5) Platelet Count 181 x10^3/uL (140-400) Neutrophils (%) (Auto) 77 % (31-73) Lymphocytes (%) (Auto) 14 % (24-48) Monocytes (%) (Auto) 8 % (0-9) Eosinophils (%) (Auto) 1 % (0-3) Basophils (%) (Auto) 1 % (0-3) Neutrophils # (Auto) 9.3 x10^3/uL (1.8-7.7) Lymphocytes # (Auto) 1.7 x10^3/uL (1.0-4.8) Monocytes # (Auto) 1.0 x10^3/uL (0.0-1.1) Eosinophils # (Auto) 0.1 x10^3/uL (0.0-0.7) Basophils # (Auto) 0.1 x10^3/uL (0.0-0.2) Sodium Level 141 mmol/L (136-145) Potassium Level 3.8 mmol/L (3.5-5.1) Chloride Level 102 mmol/L (98-107) Carbon Dioxide Level 30 mmol/L (21-32) Anion Gap 9 (6-14) Blood Urea Nitrogen 14 mg/dL (8-26) Creatinine 0.9 mg/dL (0.7-1.3) Estimated GFR (Cockcroft-Gault) 92.5 BUN/Creatinine Ratio 16 (6-20) Glucose Level 93 mg/dL (70-99) Calcium Level 9.3 mg/dL (8.5-10.1) Total Bilirubin 1.3 mg/dL (0.2-1.0) Aspartate Amino Transf (AST/SGOT) 16 U/L (15-37) Alanine Aminotransferase (ALT/SGPT) 23 U/L (16-63) Alkaline Phosphatase 92 U/L (46-116) Total Protein 8.3 g/dL (6.4-8.2) Albumin 4.1 g/dL (3.4-5.0) Albumin/Globulin Ratio 1.0 (1.0-1.7) Lipase 125 U/L (73-393) Urine Collection Type Unknown Urine Color Yellow Urine Clarity Clear Urine pH 6.0 Urine Specific [place] >=1.030 Urine Protein Negative mg/dL (NEG-TRACE) Urine Glucose (UA) Negative mg/dL (NEG) Urine Ketones (Stick) 15 mg/dL (NEG) Urine Blood Negative (NEG) Urine Nitrite Negative (NEG) Urine Bilirubin Negative (NEG) Urine Urobilinogen Dipstick 2.0 mg/dL (0.2 mg/dL) Urine Leukocyte Esterase Negative (NEG) Urine RBC 1-2 /HPF (0-2) Urine WBC 1-4 /HPF (0-4) Urine Squamous Epithelial Cells Occ /LPF Urine Bacteria Few /HPF (0-FEW) Urine Mucus Slight /LPF Urine Opiates Screen Neg (NEG) Urine Methadone Screen Neg (NEG) Urine Barbiturates Neg (NEG) Urine Phencyclidine Screen Neg (NEG) Urine Amphetamine/Methamphetamine Neg (NEG) Urine Benzodiazepines Screen Neg (NEG) Urine Cocaine Screen Neg (NEG) Urine Cannabinoids Screen Neg (NEG) Urine Ethyl Alcohol Neg (NEG) Images Images EXAM: CT ABDOMEN/PELVIS WITH CONTRAST. HISTORY: Right lower quadrant pain. TECHNIQUE: Computed tomography of the abdomen and pelvis was performed after the intravenous administration of iodinated contrast. COMPARISON: None. FINDINGS: Lung windows through the visualized portions of the bases reveal mild atelectasis. Bone windows reveal no suspicious lesions. There are bilateral nondisplaced L5 pars interarticularis defects. The appendix is dilated with surrounding inflammation consistent with acute appendicitis. There is no drainable collection. There is no small bowel obstruction. There are no pathologically enlarged lymph nodes. The liver, gallbladder, pancreas, adrenal glands, spleen and kidneys are unremarkable. IMPRESSION: 1. Acute appendicitis. *One or more of the following individualized dose reduction techniques were utilized for this examination: 1. Automated exposure control. 2. Adjustment of the mA and/or kV according to patient size. 3. Use of iterative reconstruction technique. Electronically signed by: Ju Laws MD (05/14/2019 1:38 AM) [facility] DICTATED and SIGNED BY: JULIANNA LAWS MD DATE: 05/14/19 0138 VTE Prophylaxis Ordered VTE Prophylaxis Devices: Yes VTE Pharmacological Prophylaxi: Yes Assessment/Plan Assessment/Plan Assessment/Plan acute appendicitis on ct , The appendix is dilated with surrounding inflammation consistent with acute appendicitis. There is no drainable collection. plan admit general surgery consult npo 59 min pt exam, chart review, > 50% of time spent with exam, chart review, pt care coordination Pre-Op Diagnosis: Appendicitis Post-Op Diagnosis: same with localized peritonitis Procedure Performed: laparoscopic appendectomy Surgeon: Martinez Oconnor Anesthesia Type: GETA plus local Blood Loss: 50 Specimans Obtained: appendix Findings: retrocecal appendix with localized peritonitis, no obvious perforation Complications: none LENY ARGUELLO MD May 14, 2019 10:41
--- NOTE | 2019-05-14 11:08 | PDOC4 ---
OPERATIVE NOTE Date: Date: May 14, 2019 Pre-Op Diagnosis: Appendicitis Post-Op Diagnosis: same with localized peritonitis Procedure Performed: laparoscopic appendectomy Surgeon: Martinez Lemons Anesthesia Type: GETA plus local Blood Loss: 50 Specimans Obtained: appendix Findings: retrocecal appendix with localized peritonitis, no obvious perforation Complications: none Operative Note: After obtaining informed consent, patient was taken to Or, induced under GETA and prepped in the usual fashion. 5 mm port placed LLQ and suprapubic, 12 port placed umbilical, all under laparoscopic guidance. Abdominal cavity was explored and otherwise unremarkable. Appendix was retrocecal in nature. It was carefully dissected out. Defect created in mesoappendix. General load RYAN taken across base of appendix. Vascular load taken across mesoappendix. Appendix placed in bag, delivered and sent to pathology for evaluation. Copious irrigation. No evidence of bleeding or other pathology. Ports removed without bleeding. Fascia repaired with 0 vicryl. Skin repaired with 4 0 monocryl. Dressing placed. Patient tolerated procedure well and sent to PACU in stable condition. All counts correct. Wound class is 4, dirty. REGGIE LEMONS MD May 14, 2019 11:08
[2019-05-14] MEDS ORDERED: 0.9 % SODIUM CHLORIDE 10 ML DISP.SYRIN. IV PRN (11:15)
[2019-05-14] MEDS ORDERED: NALOXONE 0.4 MG/ML VIAL. IV PRN (11:15)
[2019-05-14] MEDS ORDERED: PROCHLORPERAZINE 10 MG/2 ML VIAL. ONE (11:42)
[2019-05-14] MEDS: IV RINGERS,LACTATED 1000ML 1,000 ML IV SCH ×2 (12:23→23:39)
[2019-05-14] MEDS: KETOROLAC 15 MG/ML VIAL. IV PRN (12:24)
[2019-05-14] MEDS: PIPERACILLIN/TAZOBACTAM 3.375 GM in IV NORMAL SALINE 50ML 50 ML IV SCH ×2 (16:03→23:39)
[2019-05-14] MEDS: HYDROcodone/APAP 5/325MG 1 TAB TABLET PO PRN (16:08)
[2019-05-14] MEDS: DOCUSATE SODIUM 100 MG CAPSULE. PO SCH (20:55)
[2019-05-15] MEDS: HYDROcodone/APAP 5/325MG 1 TAB TABLET PO PRN ×3 (02:54→20:23)
[2019-05-15 03:00] VITALS: BP 100/66
[2019-05-15] MEDS: PIPERACILLIN/TAZOBACTAM 3.375 GM in IV NORMAL SALINE 50ML 50 ML IV SCH ×3 (05:54→17:46)
[2019-05-15 05:59] LABS: BASO % 0 % (0-3); EOS % 0 % (0-3); HEMATOCRIT 36.8 % (39.0-53.0); HEMOGLOBIN 12.6 g/dL (13.0-17.5); LYMPH # 1.1 x10^3/uL (1.0-4.8); LYMPH % 14 % (24-48); MEAN CORPUSCULAR HEMOGLOBIN 30 pg (25-35); MEAN CORPUSCULAR HGB CONC 34 g/dL (31-37); MEAN CORPUSCULAR VOLUME 87 fL (79-100); MONO # 0.5 x10^3/uL (0.0-1.1); MONO % 6 % (0-9); NEUT # 6.4 x10^3/uL (1.8-7.7); NEUT % 80 % (31-73); PLATELET COUNT 143 x10^3/uL (140-400); RED BLOOD COUNT 4.25 x10^6/uL (4.30-5.70); RED CELL DISTRIBUTION WIDTH 14.1 % (11.5-14.5)
[2019-05-15 06:19] LABS: CALCIUM 8.3 mg/dL (8.5-10.1); CREATININE 0.8 mg/dL (0.7-1.3); POTASSIUM 3.7 mmol/L (3.5-5.1)
[2019-05-15 07:00] VITALS: BP 105/72
[2019-05-15] MEDS: DOCUSATE SODIUM 100 MG CAPSULE. PO SCH ×2 (07:59→20:22)
--- NOTE | 2019-05-15 08:38 | PDOC ---
PROGRESS NOTES History of Present Illness History of Present Illness VTE Prophylaxis Ordered VTE Prophylaxis Devices: Yes VTE Pharmacological Prophylaxi: Yes Assessment/Plan Assessment/Plan Assessment/Plan acute appendicitis with localized peritonitis on ct , The appendix is dilated with surrounding inflammation consistent with acute appendicitis. There is no drainable collection. random hyperglycemia plan admit general surgery consult advance diet iv zosyn q 6 hrs accuchecks 29 min pt exam, chart review, > 50% of time spent with exam, chart review, pt care coordination Pre-Op Diagnosis: Appendicitis Post-Op Diagnosis: same with localized peritonitis Procedure Performed: laparoscopic appendectomy Surgeon: Martinez Oconnor Anesthesia Type: GETA plus local Blood Loss: 50 Specimans Obtained: appendix Findings: retrocecal appendix with localized peritonitis, no obvious perforation Complications: none Vitals Vitals Vital Signs Date Time Temp Pulse Resp B/P (MAP) Pulse Ox O2 Delivery O2 Flow Rate FiO2 05/15/19 08:08 Room Air 05/15/19 07:00 98.0 69 17 105/72 (83) 96 98.0 05/14/19 13:15 1.0 Physical Exam General: Alert, Oriented X3, Cooperative, No acute distress Heart: Regular rate, Normal S1 Lungs: Clear Abdomen: Normal bowel sounds, Soft, Other Extremities: No cyanosis, No edema Skin: No rashes, No breakdown Labs LABS Laboratory Tests Test 05/14/19 16:25 05/15/19 05:30 Lactic Acid Level 1.0 mmol/L (0.4-2.0) White Blood Count 8.0 x10^3/uL (4.0-11.0) Red Blood Count 4.25 x10^6/uL (4.30-5.70) Hemoglobin 12.6 g/dL (13.0-17.5) Hematocrit 36.8 % (39.0-53.0) Mean Corpuscular Volume 87 fL (79-100) Mean Corpuscular Hemoglobin 30 pg (25-35) Mean Corpuscular Hemoglobin Concent 34 g/dL (31-37) Red Cell Distribution Width 14.1 % (11.5-14.5) Platelet Count 143 x10^3/uL (140-400) Neutrophils (%) (Auto) 80 % (31-73) Lymphocytes (%) (Auto) 14 % (24-48) Monocytes (%) (Auto) 6 % (0-9) Eosinophils (%) (Auto) 0 % (0-3) Basophils (%) (Auto) 0 % (0-3) Neutrophils # (Auto) 6.4 x10^3/uL (1.8-7.7) Lymphocytes # (Auto) 1.1 x10^3/uL (1.0-4.8) Monocytes # (Auto) 0.5 x10^3/uL (0.0-1.1) Eosinophils # (Auto) 0.0 x10^3/uL (0.0-0.7) Basophils # (Auto) 0.0 x10^3/uL (0.0-0.2) Sodium Level 143 mmol/L (136-145) Potassium Level 3.7 mmol/L (3.5-5.1) Chloride Level 109 mmol/L (98-107) Carbon Dioxide Level 29 mmol/L (21-32) Anion Gap 5 (6-14) Blood Urea Nitrogen 9 mg/dL (8-26) Creatinine 0.8 mg/dL (0.7-1.3) Estimated GFR (Cockcroft-Gault) 106.0 Glucose Level 156 mg/dL (70-99) Calcium Level 8.3 mg/dL (8.5-10.1) Comment Review of Relevant I have reviewed the following items fab (where applicable) has been applied. Labs Laboratory Tests Test 05/14/19 00:02 05/14/19 06:15 05/14/19 16:25 05/15/19 05:30 White Blood Count 12.1 x10^3/uL (4.0-11.0) 8.0 x10^3/uL (4.0-11.0) Red Blood Count 5.31 x10^6/uL (4.30-5.70) 4.25 x10^6/uL (4.30-5.70) Hemoglobin 15.5 g/dL (13.0-17.5) 12.6 g/dL (13.0-17.5) Hematocrit 45.1 % (39.0-53.0) 36.8 % (39.0-53.0) Mean Corpuscular Volume 85 fL (79-100) 87 fL (79-100) Mean Corpuscular Hemoglobin 29 pg (25-35) 30 pg (25-35) Mean Corpuscular Hemoglobin Concent 34 g/dL (31-37) 34 g/dL (31-37) Red Cell Distribution Width 14.0 % (11.5-14.5) 14.1 % (11.5-14.5) Platelet Count 181 x10^3/uL (140-400) 143 x10^3/uL (140-400) Neutrophils (%) (Auto) 77 % (31-73) 80 % (31-73) Lymphocytes (%) (Auto) 14 % (24-48) 14 % (24-48) Monocytes (%) (Auto) 8 % (0-9) 6 % (0-9) Eosinophils (%) (Auto) 1 % (0-3) 0 % (0-3) Basophils (%) (Auto) 1 % (0-3) 0 % (0-3) Neutrophils # (Auto) 9.3 x10^3/uL (1.8-7.7) 6.4 x10^3/uL (1.8-7.7) Lymphocytes # (Auto) 1.7 x10^3/uL (1.0-4.8) 1.1 x10^3/uL (1.0-4.8) Monocytes # (Auto) 1.0 x10^3/uL (0.0-1.1) 0.5 x10^3/uL (0.0-1.1) Eosinophils # (Auto) 0.1 x10^3/uL (0.0-0.7) 0.0 x10^3/uL (0.0-0.7) Basophils # (Auto) 0.1 x10^3/uL (0.0-0.2) 0.0 x10^3/uL (0.0-0.2) Sodium Level 141 mmol/L (136-145) 143 mmol/L (136-145) Potassium Level 3.8 mmol/L (3.5-5.1) 3.7 mmol/L (3.5-5.1) Chloride Level 102 mmol/L (98-107) 109 mmol/L (98-107) Carbon Dioxide Level 30 mmol/L (21-32) 29 mmol/L (21-32) Anion Gap 9 (6-14) 5 (6-14) Blood Urea Nitrogen 14 mg/dL (8-26) 9 mg/dL (8-26) Creatinine 0.9 mg/dL (0.7-1.3) 0.8 mg/dL (0.7-1.3) Estimated GFR (Cockcroft-Gault) 92.5 106.0 BUN/Creatinine Ratio 16 (6-20) Glucose Level 93 mg/dL (70-99) 156 mg/dL (70-99) Calcium Level 9.3 mg/dL (8.5-10.1) 8.3 mg/dL (8.5-10.1) Total Bilirubin 1.3 mg/dL (0.2-1.0) Aspartate Amino Transf (AST/SGOT) 16 U/L (15-37) Alanine Aminotransferase (ALT/SGPT) 23 U/L (16-63) Alkaline Phosphatase 92 U/L (46-116) Total Protein 8.3 g/dL (6.4-8.2) Albumin 4.1 g/dL (3.4-5.0) Albumin/Globulin Ratio 1.0 (1.0-1.7) Lipase 125 U/L (73-393) Urine Collection Type Unknown Urine Color Yellow Urine Clarity Clear Urine pH 6.0 Urine Specific [place] >=1.030 Urine Protein Negative mg/dL (NEG-TRACE) Urine Glucose (UA) Negative mg/dL (NEG) Urine Ketones (Stick) 15 mg/dL (NEG) Urine Blood Negative (NEG) Urine Nitrite Negative (NEG) Urine Bilirubin Negative (NEG) Urine Urobilinogen Dipstick 2.0 mg/dL (0.2 mg/dL) Urine Leukocyte Esterase Negative (NEG) Urine RBC 1-2 /HPF (0-2) Urine WBC 1-4 /HPF (0-4) Urine Squamous Epithelial Cells Occ /LPF Urine Bacteria Few /HPF (0-FEW) Urine Mucus Slight /LPF Urine Opiates Screen Neg (NEG) Urine Methadone Screen Neg (NEG) Urine Barbiturates Neg (NEG) Urine Phencyclidine Screen Neg (NEG) Urine Amphetamine/Methamphetamine Neg (NEG) Urine Benzodiazepines Screen Neg (NEG) Urine Cocaine Screen Neg (NEG) Urine Cannabinoids Screen Neg (NEG) Urine Ethyl Alcohol Neg (NEG) Lactic Acid Level 1.0 mmol/L (0.4-2.0) Laboratory Tests Test 05/14/19 16:25 05/15/19 05:30 Lactic Acid Level 1.0 mmol/L (0.4-2.0) White Blood Count 8.0 x10^3/uL (4.0-11.0) Red Blood Count 4.25 x10^6/uL (4.30-5.70) Hemoglobin 12.6 g/dL (13.0-17.5) Hematocrit 36.8 % (39.0-53.0) Mean Corpuscular Volume 87 fL (79-100) Mean Corpuscular Hemoglobin 30 pg (25-35) Mean Corpuscular Hemoglobin Concent 34 g/dL (31-37) Red Cell Distribution Width 14.1 % (11.5-14.5) Platelet Count 143 x10^3/uL (140-400) Neutrophils (%) (Auto) 80 % (31-73) Lymphocytes (%) (Auto) 14 % (24-48) Monocytes (%) (Auto) 6 % (0-9) Eosinophils (%) (Auto) 0 % (0-3) Basophils (%) (Auto) 0 % (0-3) Neutrophils # (Auto) 6.4 x10^3/uL (1.8-7.7) Lymphocytes # (Auto) 1.1 x10^3/uL (1.0-4.8) Monocytes # (Auto) 0.5 x10^3/uL (0.0-1.1) Eosinophils # (Auto) 0.0 x10^3/uL (0.0-0.7) Basophils # (Auto) 0.0 x10^3/uL (0.0-0.2) Sodium Level 143 mmol/L (136-145) Potassium Level 3.7 mmol/L (3.5-5.1) Chloride Level 109 mmol/L (98-107) Carbon Dioxide Level 29 mmol/L (21-32) Anion Gap 5 (6-14) Blood Urea Nitrogen 9 mg/dL (8-26) Creatinine 0.8 mg/dL (0.7-1.3) Estimated GFR (Cockcroft-Gault) 106.0 Glucose Level 156 mg/dL (70-99) Calcium Level 8.3 mg/dL (8.5-10.1) Medications Current Medications Sodium Chloride 1,000 ml @ 1,000 mls/hr Q1H IV Last administered on 05/14/19at 00:15; Start 05/14/19 at 00:30; Stop 05/14/19 at 01:29; Status DC Fentanyl Citrate (Fentanyl 2ml Vial) 50 mcg 1X ONCE IV Last administered on 05/14/19at 00:14; Start 05/14/19 at 00:30; Stop 05/14/19 at 00:18; Status DC Ondansetron HCl (Zofran) 4 mg 1X ONCE IV Last administered on 05/14/19at 00:14; Start 05/14/19 at 00:30; Stop 05/14/19 at 00:18; Status DC Iohexol (Omnipaque 300 Mg/ml) 75 ml 1X ONCE IV Last administered on 05/14/19at 00:54; Start 05/14/19 at 00:30; Stop 05/14/19 at 00:31; Status DC Info (CONTRAST GIVEN -- Rx MONITORING) 1 each PRN DAILY PRN MC SEE COMMENTS; Start 05/14/19 at 00:15; Stop 05/16/19 at 00:14 Sodium Chloride 1,000 ml @ 1,000 mls/hr 1X ONCE IV Last administered on 05/14/19at 01:11; Start 05/14/19 at 01:00; Stop 05/14/19 at 01:59; Status DC Ondansetron HCl (Zofran) 4 mg PRN Q8HRS PRN IV NAUSEA/VOMITING 1ST CHOICE; Start 05/14/19 at 02:15; Stop 05/14/19 at 08:00; Status DC Morphine Sulfate (Morphine Sulfate) 4 mg PRN Q2HR PRN IV SEVERE PAIN 7-10; Start 05/14/19 at 02:15; Stop 05/14/19 at 08:00; Status DC Sodium Chloride 1,000 ml @ 150 mls/hr Q6H40M IV Last administered on 05/14/19at 03:28; Start 05/14/19 at 02:30; Stop 05/15/19 at 02:29; Status DC Piperacillin Sod/ Tazobactam Sod 3.375 gm/Sodium Chloride 50 ml @ 100 mls/hr 1X ONCE IV Last administered on 05/14/19at 03:28; Start 05/14/19 at 03:00; Stop 05/14/19 at 03:29; Status DC Influenza Virus Vaccine Quadrival (Afluria Quad 2019-20 (3yr Up) Syringe) 0.5 ml ONCE ONCE VAX IM ; Start 05/14/19 at 09:00; Stop 05/14/19 at 09:01; Status DC Iohexol (Omnipaque 300 Mg/ml) 100 ml STK-MED ONCE .ROUTE ; Start 05/14/19 at 06:26; Stop 05/14/19 at 06:26; Status DC Iohexol (Omnipaque 300 Mg/ml) 75 ml 1X ONCE IV ; Start 05/14/19 at 07:00; Stop 05/14/19 at 07:01; Status DC Cefoxitin Sodium (Mefoxin) 2 gm 1X PREOP ONCE IVP ; Start 05/14/19 at 08:45; Stop 05/14/19 at 08:46; Status DC Ondansetron HCl (Zofran) 4 mg PRN Q6HRS PRN IV NAUSEA/VOMITING; Start 05/14/19 at 09:30; Stop 05/14/19 at 12:47; Status DC Fentanyl Citrate (Fentanyl 2ml Vial) 25 mcg PRN Q5MIN PRN IV MILD PAIN 1-3 Last administered on 05/14/19at 11:35; Start 05/14/19 at 09:30; Stop 05/14/19 at 12:47; Status DC Fentanyl Citrate (Fentanyl 2ml Vial) 50 mcg PRN Q5MIN PRN IV MODERATE TO SEVERE PAIN Last administered on 05/14/19at 11:23; Start 05/14/19 at 09:30; Stop 05/14/19 at 12:47; Status DC Morphine Sulfate (Morphine Sulfate) 1 mg PRN Q10MIN PRN IV SEVERE PAIN 7-10; Start 05/14/19 at 09:30; Stop 05/14/19 at 12:47; Status DC Ringer's Solution 1,000 ml @ 30 mls/hr Q24H IV ; Start 05/14/19 at 09:30; Stop 05/14/19 at 12:47; Status DC Lidocaine HCl (Xylocaine-Mpf 1% 2ml Vial) 2 ml PRN 1X PRN ID PRIOR TO IV START; Start 05/14/19 at 09:30; Stop 05/14/19 at 12:47; Status DC Hydromorphone HCl (Dilaudid) 0.5 mg PRN Q10MIN PRN IV SEV PAIN, Second choice; Start 05/14/19 at 09:30; Stop 05/14/19 at 12:47; Status DC Prochlorperazine Edisylate (Compazine) 5 mg PACU PRN PRN IV NAUSEA, MRX1 Last administered on 05/14/19at 11:45; Start 05/14/19 at 09:30; Stop 05/14/19 at 12:47; Status DC Propofol 20 ml @ As Directed STK-MED ONCE IV ; Start 05/14/19 at 09:40; Stop 05/14/19 at 09:40; Status DC Lidocaine HCl (Lidocaine Pf 2% Vial) 5 ml STK-MED ONCE .ROUTE ; Start 05/14/19 at 09:40; Stop 05/14/19 at 09:40; Status DC Fentanyl Citrate (Fentanyl 2ml Vial) 100 mcg STK-MED ONCE .ROUTE ; Start 05/14/19 at 09:40; Stop 05/14/19 at 09:40; Status DC Succinylcholine Chloride (Anectine) 200 mg STK-MED ONCE .ROUTE ; Start 05/14/19 at 09:40; Stop 05/14/19 at 09:40; Status DC Rocuronium [place] (Zemuron) 50 mg STK-MED ONCE .ROUTE ; Start 05/14/19 at 09:40; Stop 05/14/19 at 09:40; Status DC Bupivacaine HCl (Sensorcaine Mpf 0.5%) 30 ml STK-MED ONCE .ROUTE Last administered on 05/14/19at 10:29; Start 05/14/19 at 09:42; Stop 05/14/19 at 0 9:43; Status DC Dexamethasone Sodium Phosphate (Decadron) 4 mg STK-MED ONCE .ROUTE ; Start 05/14/19 at 10:16; Stop 05/14/19 at 10:17; Status DC Desflurane (Suprane) 30 ml STK-MED ONCE IH ; Start 05/14/19 at 10:16; Stop 05/14/19 at 10:17; Status DC Glycopyrrolate (Robinul) 1 mg STK-MED ONCE .ROUTE ; Start 05/14/19 at 10:25; Stop 05/14/19 at 10:26; Status DC Neostigmine Methylsulfate (Neostigmine Methylsulfate) 5 mg STK-MED ONCE .ROUTE ; Start 05/14/19 at 10:26; Stop 05/14/19 at 10:26; Status DC Sodium Chloride (Normal Saline Flush) 3 ml QSHIFT PRN IV AFTER MEDS AND BLOOD DRAWS; Start 05/14/19 at 11:15 Ringer's Solution 1,000 ml @ 100 mls/hr Q10H IV Last administered on 05/14/19at 23:39; Start 05/14/19 at 11:02 Acetaminophen/ Hydrocodone Bitart (Lortab 5/325) 1 tab PRN Q4HRS PRN PO MILD PAIN 1-3 Last administered on 05/15/19at 07:59; Start 05/14/19 at 11:15 Ketorolac Tromethamine (Toradol 15mg Vial) 15 mg PRN Q6HRS PRN IV MILD PAIN 1-3 Last administered on 05/14/19at 12:24; Start 05/14/19 at 11:15; Stop 05/19/19 at 11:14 Naloxone HCl (Narcan) 0.4 mg PRN Q2MIN PRN IV SEE INSTRUCTIONS; Start 05/14/19 at 11:15 Sodium Chloride 1,000 ml @ 25 mls/hr Q24H IV ; Start 05/14/19 at 11:02 Morphine Sulfate (Morphine Sulfate) 1 mg PRN Q1HR PRN IV MODERATE-SEVERE PAIN Last administered on 05/14/19at 20:56; Start 05/14/19 at 11:15 Docusate Sodium (Colace) 100 mg BID PO Last administered on 05/15/19at 07:59; Start 05/14/19 at 21:00 Ondansetron HCl (Zofran) 4 mg PRN Q6HRS PRN IV NAUESA, 1ST CHOICE; Start 05/14/19 at 11:15 Fentanyl Citrate (Fentanyl 2ml Vial) 100 mcg STK-MED ONCE .ROUTE ; Start 05/14/19 at 11:19; Stop 05/14/19 at 11:19; Status DC Prochlorperazine Edisylate (Compazine) 10 mg STK-MED ONCE .ROUTE ; Start 05/14/19 at 11:42; Stop 05/14/19 at 11:42; Status DC Piperacillin Sod/ Tazobactam Sod 3.375 gm/Sodium Chloride 50 ml @ 100 mls/hr Q6HRS IV Last administered on 05/15/19at 05:54; Start 05/14/19 at 16:30 Active Scripts Active Reported No Known Medications Prior To Admisstion (Info) Each 1 Each 1X Vitals/I & O Vital Sign - Last 24 Hours 05/14/19 05/14/19 05/14/19 05/14/19 11:08 11:08 11:23 11:25 Temp 97.7 97.7 97.7 97.7 Pulse 88 68 Resp 20 20 16 B/P (MAP) 118/77 113/70 Pulse Ox 100 100 99 O2 Delivery Mask Simple Mask Simple Mask Simple Mask O2 Flow Rate 10 10 10.0 10.0 05/14/19 05/14/19 05/14/19 05/14/19 11:35 11:55 12:00 12:31 Temp 97.7 98.0 97.7 98.0 Pulse 64 70 Resp 18 16 20 B/P (MAP) 103/70 96/64 (75) Pulse Ox 100 98 98 O2 Delivery Simple Mask Nasal Cannula Nasal Cannula Nasal Cannula O2 Flow Rate 10.0 2 2 1.0 05/14/19 05/14/19 05/14/19 05/14/19 12:41 12:45 12:58 13:15 Pulse 70 73 85 Resp 16 18 16 B/P (MAP) 97/71 (80) 98/70 (79) 100/68 (79) Pulse Ox 98 98 98 O2 Delivery Nasal Cannula Nasal Cannula Nasal Cannula Nasal Cannula O2 Flow Rate 1.0 1.0 1.0 05/14/19 05/14/19 05/14/19 05/14/19 13:45 14:00 14:30 15:00 Pulse 88 89 86 91 Resp 18 16 B/P (MAP) 98/74 (82) 104/72 (83) 91/66 (74) 99/66 (77) Pulse Ox 93 93 97 100 O2 Delivery Room Air Room Air Room Air Room Air 05/14/19 05/14/19 05/14/19 05/14/19 16:00 16:08 17:08 19:00 Temp 98.2 98.3 98.2 98.3 Pulse 105 68 Resp 16 16 B/P (MAP) 105/67 (80) 96/61 (73) Pulse Ox 93 95 O2 Delivery Room Air Room Air Room Air Room Air 05/14/19 05/14/19 05/14/19 05/14/19 20:00 20:56 21:00 21:26 Temp 98.0 98.0 Pulse 67 Resp 20 18 18 B/P (MAP) 100/68 (79) Pulse Ox 95 96 96 O2 Delivery Room Air Room Air Room Air Room Air 05/14/19 05/15/19 05/15/19 05/15/19 23:00 02:54 03:00 07:00 Temp 98.5 98.0 98.0 98.5 98.0 98.0 Pulse 59 57 69 Resp 18 20 18 17 B/P (MAP) 97/60 (72) 100/66 (77) 105/72 (83) Pulse Ox 95 95 94 96 O2 Delivery Room Air Room Air Room Air Room Air 05/15/19 05/15/19 05/15/19 07:56 07:59 08:08 O2 Delivery Room Air Room Air Room Air Intake and Output 05/14/19 05/14/19 05/15/19 15:00 23:00 07:00 Intake Total 700 ml 1080 ml 180 ml Output Total 200 ml 1250 ml 800 ml Balance 500 ml -170 ml -620 ml LENY ARGUELLO MD May 15, 2019 08:38
--- NOTE | 2019-05-15 09:53 | PDOC ---
SURGICAL PROGRESS NOTE Subjective Pt feels much better, richie diet, passing stools Vital Signs Vital Signs Date Time Temp Pulse Resp B/P (MAP) Pulse Ox O2 Delivery O2 Flow Rate FiO2 05/15/19 09:07 Room Air 05/15/19 07:00 98.0 69 17 105/72 (83) 96 98.0 05/14/19 13:15 1.0 I&O Intake and Output 05/15/19 07:00 Intake Total 1960 ml Output Total 2250 ml Balance -290 ml Intake Oral 1260 ml IV Total 700 ml Output Urine Total 2250 ml # Voids 3 General: Alert, Oriented X3, Cooperative, No acute distress Abdomen: Soft, No tenderness Labs Laboratory Tests Test 05/14/19 00:02 05/14/19 06:15 05/14/19 16:25 05/15/19 05:30 White Blood Count 12.1 x10^3/uL (4.0-11.0) 8.0 x10^3/uL (4.0-11.0) Red Blood Count 5.31 x10^6/uL (4.30-5.70) 4.25 x10^6/uL (4.30-5.70) Hemoglobin 15.5 g/dL (13.0-17.5) 12.6 g/dL (13.0-17.5) Hematocrit 45.1 % (39.0-53.0) 36.8 % (39.0-53.0) Mean Corpuscular Volume 85 fL (79-100) 87 fL (79-100) Mean Corpuscular Hemoglobin 29 pg (25-35) 30 pg (25-35) Mean Corpuscular Hemoglobin Concent 34 g/dL (31-37) 34 g/dL (31-37) Red Cell Distribution Width 14.0 % (11.5-14.5) 14.1 % (11.5-14.5) Platelet Count 181 x10^3/uL (140-400) 143 x10^3/uL (140-400) Neutrophils (%) (Auto) 77 % (31-73) 80 % (31-73) Lymphocytes (%) (Auto) 14 % (24-48) 14 % (24-48) Monocytes (%) (Auto) 8 % (0-9) 6 % (0-9) Eosinophils (%) (Auto) 1 % (0-3) 0 % (0-3) Basophils (%) (Auto) 1 % (0-3) 0 % (0-3) Neutrophils # (Auto) 9.3 x10^3/uL (1.8-7.7) 6.4 x10^3/uL (1.8-7.7) Lymphocytes # (Auto) 1.7 x10^3/uL (1.0-4.8) 1.1 x10^3/uL (1.0-4.8) Monocytes # (Auto) 1.0 x10^3/uL (0.0-1.1) 0.5 x10^3/uL (0.0-1.1) Eosinophils # (Auto) 0.1 x10^3/uL (0.0-0.7) 0.0 x10^3/uL (0.0-0.7) Basophils # (Auto) 0.1 x10^3/uL (0.0-0.2) 0.0 x10^3/uL (0.0-0.2) Sodium Level 141 mmol/L (136-145) 143 mmol/L (136-145) Potassium Level 3.8 mmol/L (3.5-5.1) 3.7 mmol/L (3.5-5.1) Chloride Level 102 mmol/L (98-107) 109 mmol/L (98-107) Carbon Dioxide Level 30 mmol/L (21-32) 29 mmol/L (21-32) Anion Gap 9 (6-14) 5 (6-14) Blood Urea Nitrogen 14 mg/dL (8-26) 9 mg/dL (8-26) Creatinine 0.9 mg/dL (0.7-1.3) 0.8 mg/dL (0.7-1.3) Estimated GFR (Cockcroft-Gault) 92.5 106.0 BUN/Creatinine Ratio 16 (6-20) Glucose Level 93 mg/dL (70-99) 156 mg/dL (70-99) Calcium Level 9.3 mg/dL (8.5-10.1) 8.3 mg/dL (8.5-10.1) Total Bilirubin 1.3 mg/dL (0.2-1.0) Aspartate Amino Transf (AST/SGOT) 16 U/L (15-37) Alanine Aminotransferase (ALT/SGPT) 23 U/L (16-63) Alkaline Phosphatase 92 U/L (46-116) Total Protein 8.3 g/dL (6.4-8.2) Albumin 4.1 g/dL (3.4-5.0) Albumin/Globulin Ratio 1.0 (1.0-1.7) Lipase 125 U/L (73-393) Urine Collection Type Unknown Urine Color Yellow Urine Clarity Clear Urine pH 6.0 Urine Specific Line [place] >=1.030 Urine Protein Negative mg/dL (NEG-TRACE) Urine Glucose (UA) Negative mg/dL (NEG) Urine Ketones (Stick) 15 mg/dL (NEG) Urine Blood Negative (NEG) Urine Nitrite Negative (NEG) Urine Bilirubin Negative (NEG) Urine Urobilinogen Dipstick 2.0 mg/dL (0.2 mg/dL) Urine Leukocyte Esterase Negative (NEG) Urine RBC 1-2 /HPF (0-2) Urine WBC 1-4 /HPF (0-4) Urine Squamous Epithelial Cells Occ /LPF Urine Bacteria Few /HPF (0-FEW) Urine Mucus Slight /LPF Urine Opiates Screen Neg (NEG) Urine Methadone Screen Neg (NEG) Urine Barbiturates Neg (NEG) Urine Phencyclidine Screen Neg (NEG) Urine Amphetamine/Methamphetamine Neg (NEG) Urine Benzodiazepines Screen Neg (NEG) Urine Cocaine Screen Neg (NEG) Urine Cannabinoids Screen Neg (NEG) Urine Ethyl Alcohol Neg (NEG) Lactic Acid Level 1.0 mmol/L (0.4-2.0) Laboratory Tests Test 05/14/19 16:25 05/15/19 05:30 Lactic Acid Level 1.0 mmol/L (0.4-2.0) White Blood Count 8.0 x10^3/uL (4.0-11.0) Red Blood Count 4.25 x10^6/uL (4.30-5.70) Hemoglobin 12.6 g/dL (13.0-17.5) Hematocrit 36.8 % (39.0-53.0) Mean Corpuscular Volume 87 fL (79-100) Mean Corpuscular Hemoglobin 30 pg (25-35) Mean Corpuscular Hemoglobin Concent 34 g/dL (31-37) Red Cell Distribution Width 14.1 % (11.5-14.5) Platelet Count 143 x10^3/uL (140-400) Neutrophils (%) (Auto) 80 % (31-73) Lymphocytes (%) (Auto) 14 % (24-48) Monocytes (%) (Auto) 6 % (0-9) Eosinophils (%) (Auto) 0 % (0-3) Basophils (%) (Auto) 0 % (0-3) Neutrophils # (Auto) 6.4 x10^3/uL (1.8-7.7) Lymphocytes # (Auto) 1.1 x10^3/uL (1.0-4.8) Monocytes # (Auto) 0.5 x10^3/uL (0.0-1.1) Eosinophils # (Auto) 0.0 x10^3/uL (0.0-0.7) Basophils # (Auto) 0.0 x10^3/uL (0.0-0.2) Sodium Level 143 mmol/L (136-145) Potassium Level 3.7 mmol/L (3.5-5.1) Chloride Level 109 mmol/L (98-107) Carbon Dioxide Level 29 mmol/L (21-32) Anion Gap 5 (6-14) Blood Urea Nitrogen 9 mg/dL (8-26) Creatinine 0.8 mg/dL (0.7-1.3) Estimated GFR (Cockcroft-Gault) 106.0 Glucose Level 156 mg/dL (70-99) Calcium Level 8.3 mg/dL (8.5-10.1) Problem List s/p lap appendectomy DIAMOND OK to d/c home from surgery POV recommend PO abx. f/u in two weeks. REGGIE LEMONS MD May 15, 2019 09:53
[2019-05-15] MEDS: IV NORMAL SALINE 1000ML BAG 1,000 ML IV SCH (10:31)
[2019-05-15] MEDS: KETOROLAC 15 MG/ML VIAL. IV PRN (10:36)
[2019-05-15] MEDS: IV RINGERS,LACTATED 1000ML 1,000 ML IV SCH ×2 (10:37→20:22)
[2019-05-15 11:00] VITALS: BP 108/72
[2019-05-15 15:00] VITALS: BP 106/76
[2019-05-15 19:00] VITALS: BP 105/75
[2019-05-15] MEDS: LACTOBACILLUS RHAMNOSUS GG 1 CAPSULE. PO SCH (20:22)
[2019-05-15 23:00] VITALS: BP 107/72
[2019-05-16] MEDS: PIPERACILLIN/TAZOBACTAM 3.375 GM in IV NORMAL SALINE 50ML 50 ML IV SCH ×3 (00:53→11:02)
[2019-05-16 03:00] VITALS: BP 117/86
[2019-05-16] MEDS: HYDROcodone/APAP 5/325MG 1 TAB TABLET PO PRN ×3 (04:23→11:07)
[2019-05-16] MEDS: IV RINGERS,LACTATED 1000ML 1,000 ML IV SCH (06:35)
[2019-05-16 07:00] VITALS: BP 126/95
[2019-05-16] MEDS: DOCUSATE SODIUM 100 MG CAPSULE. PO SCH (08:09)
[2019-05-16] MEDS: LACTOBACILLUS RHAMNOSUS GG 1 CAPSULE. PO SCH (08:09)
--- NOTE | 2019-05-16 08:35 | PDOC ---
PROGRESS NOTES History of Present Illness History of Present Illness VTE Prophylaxis Ordered VTE Prophylaxis Devices: Yes VTE Pharmacological Prophylaxi: Yes Assessment/Plan Assessment/Plan Assessment/Plan POD # 2 acute appendicitis with localized peritonitis on ct , The appendix is dilated with surrounding inflammation consistent with acute appendicitis. There is no drainable collection. random hyperglycemia plan admit general surgery consult advance diet iv zosyn q 6 hrs accuchecks home later today if ok with surgery 29 min pt exam, chart review, > 50% of time spent with exam, chart review, pt care coordination Pre-Op Diagnosis: Appendicitis Post-Op Diagnosis: same with localized peritonitis Procedure Performed: laparoscopic appendectomy Surgeon: Martinez Oconnor Anesthesia Type: GETA plus local Blood Loss: 50 Specimans Obtained: appendix Findings: retrocecal appendix with localized peritonitis, no obvious perforation Complications: none Vitals Vitals Vital Signs Date Time Temp Pulse Resp B/P (MAP) Pulse Ox O2 Delivery O2 Flow Rate FiO2 05/16/19 08:12 20 95 Room Air 05/16/19 07:00 97.9 67 126/95 (105) 97.9 05/15/19 21:23 1.0 Physical Exam General: Alert, Oriented X3, Cooperative, No acute distress Heart: Regular rate, Normal S1 Lungs: Clear Abdomen: Normal bowel sounds, Soft, No tenderness Extremities: No cyanosis, No edema Skin: No rashes, No breakdown Labs LABS Laboratory Tests Test 05/15/19 11:35 05/15/19 16:58 Glucose (Fingerstick) 99 mg/dL (70-99) 89 mg/dL (70-99) Comment Review of Relevant I have reviewed the following items fab (where applicable) has been applied. Labs Laboratory Tests Test 05/14/19 16:25 05/15/19 05:30 05/15/19 11:35 05/15/19 16:58 Lactic Acid Level 1.0 mmol/L (0.4-2.0) White Blood Count 8.0 x10^3/uL (4.0-11.0) Red Blood Count 4.25 x10^6/uL (4.30-5.70) Hemoglobin 12.6 g/dL (13.0-17.5) Hematocrit 36.8 % (39.0-53.0) Mean Corpuscular Volume 87 fL (79-100) Mean Corpuscular Hemoglobin 30 pg (25-35) Mean Corpuscular Hemoglobin Concent 34 g/dL (31-37) Red Cell Distribution Width 14.1 % (11.5-14.5) Platelet Count 143 x10^3/uL (140-400) Neutrophils (%) (Auto) 80 % (31-73) Lymphocytes (%) (Auto) 14 % (24-48) Monocytes (%) (Auto) 6 % (0-9) Eosinophils (%) (Auto) 0 % (0-3) Basophils (%) (Auto) 0 % (0-3) Neutrophils # (Auto) 6.4 x10^3/uL (1.8-7.7) Lymphocytes # (Auto) 1.1 x10^3/uL (1.0-4.8) Monocytes # (Auto) 0.5 x10^3/uL (0.0-1.1) Eosinophils # (Auto) 0.0 x10^3/uL (0.0-0.7) Basophils # (Auto) 0.0 x10^3/uL (0.0-0.2) Sodium Level 143 mmol/L (136-145) Potassium Level 3.7 mmol/L (3.5-5.1) Chloride Level 109 mmol/L (98-107) Carbon Dioxide Level 29 mmol/L (21-32) Anion Gap 5 (6-14) Blood Urea Nitrogen 9 mg/dL (8-26) Creatinine 0.8 mg/dL (0.7-1.3) Estimated GFR (Cockcroft-Gault) 106.0 Glucose Level 156 mg/dL (70-99) Calcium Level 8.3 mg/dL (8.5-10.1) Glucose (Fingerstick) 99 mg/dL (70-99) 89 mg/dL (70-99) Laboratory Tests Test 05/15/19 11:35 05/15/19 16:58 Glucose (Fingerstick) 99 mg/dL (70-99) 89 mg/dL (70-99) Medications Current Medications Sodium Chloride 1,000 ml @ 1,000 mls/hr Q1H IV Last administered on 05/14/19at 00:15; Start 05/14/19 at 00:30; Stop 05/14/19 at 01:29; Status DC Fentanyl Citrate (Fentanyl 2ml Vial) 50 mcg 1X ONCE IV Last administered on 05/14/19at 00:14; Start 05/14/19 at 00:30; Stop 05/14/19 at 00:18; Status DC Ondansetron HCl (Zofran) 4 mg 1X ONCE IV Last administered on 05/14/19at 00:14; Start 05/14/19 at 00:30; Stop 05/14/19 at 00:18; Status DC Iohexol (Omnipaque 300 Mg/ml) 75 ml 1X ONCE IV Last administered on 05/14/19at 00:54; Start 05/14/19 at 00:30; Stop 05/14/19 at 00:31; Status DC Info (CONTRAST GIVEN -- Rx MONITORING) 1 each PRN DAILY PRN MC SEE COMMENTS; Start 05/14/19 at 00:15; Stop 05/16/19 at 00:14; Status DC Sodium Chloride 1,000 ml @ 1,000 mls/hr 1X ONCE IV Last administered on 05/14/19at 01:11; Start 05/14/19 at 01:00; Stop 05/14/19 at 01:59; Status DC Ondansetron HCl (Zofran) 4 mg PRN Q8HRS PRN IV NAUSEA/VOMITING 1ST CHOICE; Start 05/14/19 at 02:15; Stop 05/14/19 at 08:00; Status DC Morphine Sulfate (Morphine Sulfate) 4 mg PRN Q2HR PRN IV SEVERE PAIN 7-10; S tart 05/14/19 at 02:15; Stop 05/14/19 at 08:00; Status DC Sodium Chloride 1,000 ml @ 150 mls/hr Q6H40M IV Last administered on 05/14/19at 03:28; Start 05/14/19 at 02:30; Stop 05/15/19 at 02:29; Status DC Piperacillin Sod/ Tazobactam Sod 3.375 gm/Sodium Chloride 50 ml @ 100 mls/hr 1X ONCE IV Last administered on 05/14/19at 03:28; Start 05/14/19 at 03:00; Stop 05/14/19 at 03:29; Status DC Influenza Virus Vaccine Quadrival (Afluria Quad 2019-20 (3yr Up) Syringe) 0.5 ml ONCE ONCE VAX IM ; Start 05/14/19 at 09:00; Stop 05/14/19 at 09:01; Status DC Iohexol (Omnipaque 300 Mg/ml) 100 ml STK-MED ONCE .ROUTE ; Start 05/14/19 at 06:26; Stop 05/14/19 at 06:26; Status DC Iohexol (Omnipaque 300 Mg/ml) 75 ml 1X ONCE IV ; Start 05/14/19 at 07:00; Stop 05/14/19 at 07:01; Status DC Cefoxitin Sodium (Mefoxin) 2 gm 1X PREOP ONCE IVP ; Start 05/14/19 at 08:45; Stop 05/14/19 at 08:46; Status DC Ondansetron HCl (Zofran) 4 mg PRN Q6HRS PRN IV NAUSEA/VOMITING; Start 05/14/19 at 09:30; Stop 05/14/19 at 12:47; Status DC Fentanyl Citrate (Fentanyl 2ml Vial) 25 mcg PRN Q5MIN PRN IV MILD PAIN 1-3 Last administered on 05/14/19at 11:35; Start 05/14/19 at 09:30; Stop 05/14/19 at 12:47; Status DC Fentanyl Citrate (Fentanyl 2ml Vial) 50 mcg PRN Q5MIN PRN IV MODERATE TO SEVERE PAIN Last administered on 05/14/19at 11:23; Start 05/14/19 at 09:30; Stop 05/14/19 at 12:47; Status DC Morphine Sulfate (Morphine Sulfate) 1 mg PRN Q10MIN PRN IV SEVERE PAIN 7-10; Start 05/14/19 at 09:30; Stop 05/14/19 at 12:47; Status DC Ringer's Solution 1,000 ml @ 30 mls/hr Q24H IV ; Start 05/14/19 at 09:30; Stop 05/14/19 at 12:47; Status DC Lidocaine HCl (Xylocaine-Mpf 1% 2ml Vial) 2 ml PRN 1X PRN ID PRIOR TO IV START; Start 05/14/19 at 09:30; Stop 05/14/19 at 12:47; Status DC Hydromorphone HCl (Dilaudid) 0.5 mg PRN Q10MIN PRN IV SEV PAIN, Second choice; Start 05/14/19 at 09:30; Stop 05/14/19 at 12:47; Status DC Prochlorperazine Edisylate (Compazine) 5 mg PACU PRN PRN IV NAUSEA, MRX1 Last administered on 05/14/19at 11:45; Start 05/14/19 at 09:30; Stop 05/14/19 at 12:47; Status DC Propofol 20 ml @ As Directed STK-MED ONCE IV ; Start 05/14/19 at 09:40; Stop 05/14/19 at 09:40; Status DC Lidocaine HCl (Lidocaine Pf 2% Vial) 5 ml STK-MED ONCE .ROUTE ; Start 05/14/19 at 09:40; Stop 05/14/19 at 09:40; Status DC Fentanyl Citrate (Fentanyl 2ml Vial) 100 mcg STK-MED ONCE .ROUTE ; Start 05/14/19 at 09:40; Stop 05/14/19 at 09:40; Status DC Succinylcholine Chloride (Anectine) 200 mg STK-MED ONCE .ROUTE ; Start 05/14/19 at 09:40; Stop 05/14/19 at 09:40; Status DC Rocuronium [place] (Zemuron) 50 mg STK-MED ONCE .ROUTE ; Start 05/14/19 at 09:40; Stop 05/14/19 at 09:40; Status DC Bupivacaine HCl (Sensorcaine Mpf 0.5%) 30 ml STK-MED ONCE .ROUTE Last administered on 05/14/19at 10:29; Start 05/14/19 at 09:42; Stop 05/14/19 at 09:43; Status DC Dexamethasone Sodium Phosphate (Decadron) 4 mg STK-MED ONCE .ROUTE ; Start 05/14/19 at 10:16; Stop 05/14/19 at 10:17; Status DC Desflurane (Suprane) 30 ml STK-MED ONCE IH ; Start 05/14/19 at 10:16; Stop 05/14/19 at 10:17; Status DC Glycopyrrolate (Robinul) 1 mg STK-MED ONCE .ROUTE ; Start 05/14/19 at 10:25; Stop 05/14/19 at 10:26; Status DC Neostigmine Methylsulfate (Neostigmine Methylsulfate) 5 mg STK-MED ONCE .ROUTE ; Start 05/14/19 at 10:26; Stop 05/14/19 at 10:26; Status DC Sodium Chloride (Normal Saline Flush) 3 ml QSHIFT PRN IV AFTER MEDS AND BLOOD DRAWS; Start 05/14/19 at 11:15 Ringer's Solution 1,000 ml @ 100 mls/hr Q10H IV Last administered on 05/16/19at 06:35; Start 05/14/19 at 11:02 Acetaminophen/ Hydrocodone Bitart (Lortab 5/325) 1 tab PRN Q4HRS PRN PO MILD PAIN 1-3 Last administered on 05/16/19at 04:23; Start 05/14/19 at 11:15 Ketorolac Tromethamine (Toradol 15mg Vial) 15 mg PRN Q6HRS PRN IV MILD PAIN 1-3 Last administered on 05/15/19at 10:36; Start 05/14/19 at 11:15; Stop 05/19/19 at 11:14 Naloxone HCl (Narcan) 0.4 mg PRN Q2MIN PRN IV SEE INSTRUCTIONS; Start 05/14/19 at 11:15 Sodium Chloride 1,000 ml @ 25 mls/hr Q24H IV ; Start 05/14/19 at 11:02 Morphine Sulfate (Morphine Sulfate) 1 mg PRN Q1HR PRN IV MODERATE-SEVERE PAIN Last administered on 05/14/19at 20:56; Start 05/14/19 at 11:15 Docusate Sodium (Colace) 100 mg BID PO Last administered on 05/16/19at 08:09; Start 05/14/19 at 21:00 Ondansetron HCl (Zofran) 4 mg PRN Q6HRS PRN IV NAUESA, 1ST CHOICE; Start 04/17 05/04 at 11:15 Fentanyl Citrate (Fentanyl 2ml Vial) 100 mcg STK-MED ONCE .ROUTE ; Start 05/14/19 at 11:19; Stop 05/14/19 at 11:19; Status DC Prochlorperazine Edisylate (Compazine) 10 mg STK-MED ONCE .ROUTE ; Start 05/14/19 at 11:42; Stop 05/14/19 at 11:42; Status DC Piperacillin Sod/ Tazobactam Sod 3.375 gm/Sodium Chloride 50 ml @ 100 mls/hr Q6HRS IV Last administered on 05/16/19at 06:35; Start 05/14/19 at 16:30 Lactobacillus Rhamnosus (Culturelle) 1 cap BID PO Last administered on 05/16/19at 08:09; Start 05/15/19 at 21:00 Active Scripts Active Reported No Known Medications Prior To Admisstion (Info) Each 1 Each 1X Vitals/I & O Vital Sign - Last 24 Hours 05/15/19 05/15/19 05/15/19 05/15/19 09:07 11:00 15:00 19:00 Temp 98.6 97.9 98.1 98.6 97.9 98.1 Pulse 69 63 70 Resp 17 18 18 B/P (MAP) 108/72 (84) 106/76 (86) 105/75 (85) Pulse Ox 96 95 96 O2 Delivery Room Air Room Air Room Air 05/15/19 05/15/19 05/15/19 05/15/19 20:00 20:23 21:23 23:00 Temp 97.9 97.9 Pulse 69 Resp 18 20 16 B/P (MAP) 107/72 (84) Pulse Ox 95 95 100 O2 Delivery Room Air Room Air Room Air O2 Flow Rate 1.0 05/16/19 05/16/19 05/16/19 05/16/19 03:00 04:23 07:00 08:12 Temp 98.0 97.9 98.0 97.9 Pulse 60 67 Resp 16 20 16 20 B/P (MAP) 117/86 (96) 126/95 (105) Pulse Ox 95 95 95 95 O2 Delivery Room Air Room Air Room Air Intake and Output 05/15/19 05/15/19 05/16/19 15:00 23:00 07:00 Intake Total 1025 ml Output Total 800 ml Balance 1025 ml -800 ml LENY ARGUELLO MD May 16, 2019 08:35
[2019-05-16] MEDS ORDERED: HYDR-3164 PO (10:09)
[2019-05-16] MEDS ORDERED: DOCU-109 PO (10:15)
--- NOTE | 2019-05-16 10:17 | PDOC ---
SURGICAL PROGRESS NOTE Subjective feels well tolerating diet ready for discharge Vital Signs Vital Signs Date Time Temp Pulse Resp B/P (MAP) Pulse Ox O2 Delivery O2 Flow Rate FiO2 05/16/19 08:12 20 95 Room Air 05/16/19 07:00 97.9 67 126/95 (105) 97.9 05/15/19 21:23 1.0 I&O Intake and Output 05/16/19 07:00 Intake Total 1025 ml Output Total 800 ml Balance 225 ml IV Total 1025 ml Output Urine Total 800 ml # Voids 3 General: Alert, Oriented X3, Cooperative, No acute distress Abdomen: Soft, Other (ND, lap dressings dry) Labs Laboratory Tests Test 05/14/19 16:25 05/15/19 05:30 05/15/19 11:35 05/15/19 16:58 Lactic Acid Level 1.0 mmol/L (0.4-2.0) White Blood Count 8.0 x10^3/uL (4.0-11.0) Red Blood Count 4.25 x10^6/uL (4.30-5.70) Hemoglobin 12.6 g/dL (13.0-17.5) Hematocrit 36.8 % (39.0-53.0) Mean Corpuscular Volume 87 fL (79-100) Mean Corpuscular Hemoglobin 30 pg (25-35) Mean Corpuscular Hemoglobin Concent 34 g/dL (31-37) Red Cell Distribution Width 14.1 % (11.5-14.5) Platelet Count 143 x10^3/uL (140-400) Neutrophils (%) (Auto) 80 % (31-73) Lymphocytes (%) (Auto) 14 % (24-48) Monocytes (%) (Auto) 6 % (0-9) Eosinophils (%) (Auto) 0 % (0-3) Basophils (%) (Auto) 0 % (0-3) Neutrophils # (Auto) 6.4 x10^3/uL (1.8-7.7) Lymphocytes # (Auto) 1.1 x10^3/uL (1.0-4.8) Monocytes # (Auto) 0.5 x10^3/uL (0.0-1.1) Eosinophils # (Auto) 0.0 x10^3/uL (0.0-0.7) Basophils # (Auto) 0.0 x10^3/uL (0.0-0.2) Sodium Level 143 mmol/L (136-145) Potassium Level 3.7 mmol/L (3.5-5.1) Chloride Level 109 mmol/L (98-107) Carbon Dioxide Level 29 mmol/L (21-32) Anion Gap 5 (6-14) Blood Urea Nitrogen 9 mg/dL (8-26) Creatinine 0.8 mg/dL (0.7-1.3) Estimated GFR (Cockcroft-Gault) 106.0 Glucose Level 156 mg/dL (70-99) Calcium Level 8.3 mg/dL (8.5-10.1) Glucose (Fingerstick) 99 mg/dL (70-99) 89 mg/dL (70-99) Laboratory Tests Test 05/15/19 11:35 05/15/19 16:58 Glucose (Fingerstick) 99 mg/dL (70-99) 89 mg/dL (70-99) Assessment/Plan s/p appy ok to dc home script for pain med, abx left LEODAN PRABHAKAR WAD [employer] May 16, 2019 10:17
--- NOTE | 2019-05-16 10:39 | PDOC3 ---
Discharge Summary Date of Admission: May 14, 2019 Date of Discharge: May 16, 2019 Follow-Up: 3-5 days Admitting Diagnosis comment: Assessment/Plan Assessment/Plan discharge dx POD # 2 acute appendicitis with localized peritonitis on ct , The appendix is dilated with surrounding inflammation consistent with acute appendicitis. There is no drainable collection. random hyperglycemia plan admit general surgery consult advance diet iv zosyn q 6 hrs accuchecks home //ok with surgery 35 min pt exam, chart review d/c planning , > 50% of time spent with exam, chart review, pt care coordination Pre-Op Diagnosis: Appendicitis Post-Op Diagnosis: same with localized peritonitis Procedure Performed: laparoscopic appendectomy Surgeon: Martinez Oconnor Anesthesia Type: GETA plus local Blood Loss: 50 Specimans Obtained: appendix Findings: retrocecal appendix with localized peritonitis, no obvious perforation Complications: none Vitals Vitals Vital Signs Date Time Temp Pulse Resp B/P (MAP) Pulse Ox O2 Delivery O2 Flow Rate FiO2 05/16/19 08:12 20 95 Room Air 05/16/19 07:00 97.9 67 126/95 (105) 97.9 05/15/19 21:23 1.0 Physical Exam General: Alert, Oriented X3, Cooperative, No acute distress Heart: Regular rate, Normal S1 Lungs: Clear Abdomen: Normal bowel sounds, Soft, No tenderness Extremities: No cyanosis, No edema Skin: No rashes, No breakdown Brief Hospital Course Mr. Blanchard is a 44 old [sex] who presented with [acute appendicitis ] CONDITION AT DISCHARGE: Improved Discharge Medications Current Medications Sodium Chloride 1,000 ml @ 1,000 mls/hr Q1H IV Last administered on 05/14/19at 00:15; Start 05/14/19 at 00:30; Stop 05/14/19 at 01:29; Status DC Fentanyl Citrate (Fentanyl 2ml Vial) 50 mcg 1X ONCE IV Last administered on 05/14/19at 00:14; Start 05/14/19 at 00:30; Stop 05/14/19 at 00:18; Status DC Ondansetron HCl (Zofran) 4 mg 1X ONCE IV Last administered on 05/14/19at 00:14; Start 05/14/19 at 00:30; Stop 05/14/19 at 00:18; Status DC Iohexol (Omnipaque 300 Mg/ml) 75 ml 1X ONCE IV Last administered on 05/14/19at 00:54; Start 05/14/19 at 00:30; Stop 05/14/19 at 00:31; Status DC Info (CONTRAST GIVEN -- Rx MONITORING) 1 each PRN DAILY PRN MC SEE COMMENTS; Start 05/14/19 at 00:15; Stop 05/16/19 at 00:14; Status DC Sodium Chloride 1,000 ml @ 1,000 mls/hr 1X ONCE IV Last administered on 05/14/19at 01:11; Start 05/14/19 at 01:00; Stop 05/14/19 at 01:59; Status DC Ondansetron HCl (Zofran) 4 mg PRN Q8HRS PRN IV NAUSEA/VOMITING 1ST CHOICE; Start 05/14/19 at 02:15; Stop 05/14/19 at 08:00; Status DC Morphine Sulfate (Morphine Sulfate) 4 mg PRN Q2HR PRN IV SEVERE PAIN 7-10; Start 05/14/19 at 02:15; Stop 05/14/19 at 08:00; Status DC Sodium Chloride 1,000 ml @ 150 mls/hr Q6H40M IV Last administered on 05/14/19at 03:28; Start 05/14/19 at 02:30; Stop 05/15/19 at 02:29; Status DC Piperacillin Sod/ Tazobactam Sod 3.375 gm/Sodium Chloride 50 ml @ 100 mls/hr 1X ONCE IV Last administered on 05/14/19at 03:28; Start 05/14/19 at 03:00; Stop 05/14/19 at 03:29; Status DC Influenza Virus Vaccine Quadrival (Afluria Quad 2019-20 (3yr Up) Syringe) 0.5 ml ONCE ONCE VAX IM ; Start 05/14/19 at 09:00; Stop 05/14/19 at 09:01; Status DC Iohexol (Omnipaque 300 Mg/ml) 100 ml STK-MED ONCE .ROUTE ; Start 05/14/19 at 06:26; Stop 05/14/19 at 06:26; Status DC Iohexol (Omnipaque 300 Mg/ml) 75 ml 1X ONCE IV ; Start 05/14/19 at 07:00; Stop 05/14/19 at 07:01; Status DC Cefoxitin Sodium (Mefoxin) 2 gm 1X PREOP ONCE IVP ; Start 05/14/19 at 08:45; Stop 05/14/19 at 08:46; Status DC Ondansetron HCl (Zofran) 4 mg PRN Q6HRS PRN IV NAUSEA/VOMITING; Start 05/14/19 at 09:30; Stop 05/14/19 at 12:47; Status DC Fentanyl Citrate (Fentanyl 2ml Vial) 25 mcg PRN Q5MIN PRN IV MILD PAIN 1-3 Last administered on 05/14/19at 11:35; Start 05/14/19 at 09:30; Stop 05/14/19 at 12:47; Status DC Fentanyl Citrate (Fentanyl 2ml Vial) 50 mcg PRN Q5MIN PRN IV MODERATE TO SEVERE PAIN Last administered on 05/14/19at 11:23; Start 05/14/19 at 09:30; Stop 05/14/19 at 12:47; Status DC Morphine Sulfate (Morphine Sulfate) 1 mg PRN Q10MIN PRN IV SEVERE PAIN 7-10; Start 05/14/19 at 09:30; Stop 05/14/19 at 12:47; Status DC Ringer's Solution 1,000 ml @ 30 mls/hr Q24H IV ; Start 05/14/19 at 09:30; Stop 05/14/19 at 12:47; Status DC Lidocaine HCl (Xylocaine-Mpf 1% 2ml Vial) 2 ml PRN 1X PRN ID PRIOR TO IV START; Start 05/14/19 at 09:30; Stop 05/14/19 at 12:47; Status DC Hydromorphone HCl (Dilaudid) 0.5 mg PRN Q10MIN PRN IV SEV PAIN, Second choice; Start 05/14/19 at 09:30; Stop 05/14/19 at 12:47; Status DC Prochlorperazine Edisylate (Compazine) 5 mg PACU PRN PRN IV NAUSEA, MRX1 Last administered on 05/14/19at 11:45; Start 05/14/19 at 09:30; Stop 05/14/19 at 12:47; Status DC Propofol 20 ml @ As Directed STK-MED ONCE IV ; Start 05/14/19 at 09:40; Stop 05/14/19 at 09:40; Status DC Lidocaine HCl (Lidocaine Pf 2% Vial) 5 ml STK-MED ONCE .ROUTE ; Start 05/14/19 at 09:40; Stop 05/14/19 at 09:40; Status DC Fentanyl Citrate (Fentanyl 2ml Vial) 100 mcg STK-MED ONCE .ROUTE ; Start 05/14/19 at 09:40; Stop 05/14/19 at 09:40; Status DC Succinylcholine Chloride (Anectine) 200 mg STK-MED ONCE .ROUTE ; Start 05/14/19 at 09:40; Stop 05/14/19 at 09:40; Status DC Rocuronium [place] (Zemuron) 50 mg STK-MED ONCE .ROUTE ; Start 05/14/19 at 09:40; Stop 05/14/19 at 09:40; Status DC Bupivacaine HCl (Sensorcaine Mpf 0.5%) 30 ml STK-MED ONCE .ROUTE Last administered on 05/14/19at 10:29; Start 05/14/19 at 09:42; Stop 05/14/19 at 09:43; Status DC Dexamethasone Sodium Phosphate (Decadron) 4 mg STK-MED ONCE .ROUTE ; Start at 10:16; Stop 05/14/19 at 10:17; Status DC Desflurane (Suprane) 30 ml STK-MED ONCE IH ; Start 05/14/19 at 10:16; Stop at 10:17; Status DC Glycopyrrolate (Robinul) 1 mg STK-MED ONCE .ROUTE ; Start 05/14/19 at 10:25; Stop 05/14/19 at 10:26; Status DC Neostigmine Methylsulfate (Neostigmine Methylsulfate) 5 mg STK-MED ONCE .ROUTE ; Start 05/14/19 at 10:26; Stop 05/14/19 at 10:26; Status DC Sodium Chloride (Normal Saline Flush) 3 ml QSHIFT PRN IV AFTER MEDS AND BLOOD DRAWS; Start 05/14/19 at 11:15 Ringer's Solution 1,000 ml @ 100 mls/hr Q10H IV Last administered on 05/16/19at 06:35; Start 05/14/19 at 11:02 Acetaminophen/ Hydrocodone Bitart (Lortab 5/325) 1 tab PRN Q4HRS PRN PO MILD PAIN 1-3 Last administered on 05/16/19at 04:23; Start 05/14/19 at 11:15 Ketorolac Tromethamine (Toradol 15mg Vial) 15 mg PRN Q6HRS PRN IV MILD PAIN 1-3 Last administered on 05/15/19at 10:36; Start 05/14/19 at 11:15; Stop 05/19/19 at 11:14 Naloxone HCl (Narcan) 0.4 mg PRN Q2MIN PRN IV SEE INSTRUCTIONS; Start 05/14/19 at 11:15 Sodium Chloride 1,000 ml @ 25 mls/hr Q24H IV ; Start 05/14/19 at 11:02 Morphine Sulfate (Morphine Sulfate) 1 mg PRN Q1HR PRN IV MODERATE-SEVERE PAIN Last administered on 05/14/19at 20:56; Start 05/14/19 at 11:15 Docusate Sodium (Colace) 100 mg BID PO Last administered on 05/16/19at 08:09; Start 05/14/19 at 21:00 Ondansetron HCl (Zofran) 4 mg PRN Q6HRS PRN IV NAUESA, 1ST CHOICE; Start 05/14/19 at 11:15 Fentanyl Citrate (Fentanyl 2ml Vial) 100 mcg STK-MED ONCE .ROUTE ; Start 05/14/19 at 11:19; Stop 05/14/19 at 11:19; Status DC Prochlorperazine Edisylate (Compazine) 10 mg STK-MED ONCE .ROUTE ; Start 05/14/19 at 11:42; Stop 05/14/19 at 11:42; Status DC Piperacillin Sod/ Tazobactam Sod 3.375 gm/Sodium Chloride 50 ml @ 100 mls/hr Q6HRS IV Last administered on 05/16/19at 06:35; Start 05/14/19 at 16:30 Lactobacillus Rhamnosus (Culturelle) 1 cap BID PO Last administered on at 08:09; Start 05/15/19 at 21:00 Active Scripts Active Reported [place] 5-325 Tablet (Acetaminophen/Hydrocodone Bitart) 1 Each Tablet 1 Tab PO PRN Q6HRS PRN No Known Medications Prior To Admisstion (Info) Each 1 Each MC 1X Vital Signs Vital Signs Date Time Temp Pulse Resp B/P (MAP) Pulse Ox O2 Delivery O2 Flow Rate FiO2 05/16/19 08:12 20 95 Room Air 05/16/19 07:00 97.9 67 126/95 (105) 97.9 05/15/19 21:23 1.0 Labs Laboratory Tests Test 05/14/19 16:25 05/15/19 05:30 05/15/19 11:35 05/15/19 16:58 Lactic Acid Level 1.0 mmol/L (0.4-2.0) White Blood Count 8.0 x10^3/uL (4.0-11.0) Red Blood Count 4.25 x10^6/uL (4.30-5.70) Hemoglobin 12.6 g/dL (13.0-17.5) Hematocrit 36.8 % (39.0-53.0) Mean Corpuscular Volume 87 fL (79-100) Mean Corpuscular Hemoglobin 30 pg (25-35) Mean Corpuscular Hemoglobin Concent 34 g/dL (31-37) Red Cell Distribution Width 14.1 % (11.5-14.5) Platelet Count 143 x10^3/uL (140-400) Neutrophils (%) (Auto) 80 % (31-73) Lymphocytes (%) (Auto) 14 % (24-48) Monocytes (%) (Auto) 6 % (0-9) Eosinophils (%) (Auto) 0 % (0-3) Basophils (%) (Auto) 0 % (0-3) Neutrophils # (Auto) 6.4 x10^3/uL (1.8-7.7) Lymphocytes # (Auto) 1.1 x10^3/uL (1.0-4.8) Monocytes # (Auto) 0.5 x10^3/uL (0.0-1.1) Eosinophils # (Auto) 0.0 x10^3/uL (0.0-0.7) Basophils # (Auto) 0.0 x10^3/uL (0.0-0.2) Sodium Level 143 mmol/L (136-145) Potassium Level 3.7 mmol/L (3.5-5.1) Chloride Level 109 mmol/L (98-107) Carbon Dioxide Level 29 mmol/L (21-32) Anion Gap 5 (6-14) Blood Urea Nitrogen 9 mg/dL (8-26) Creatinine 0.8 mg/dL (0.7-1.3) Estimated GFR (Cockcroft-Gault) 106.0 Glucose Level 156 mg/dL (70-99) Calcium Level 8.3 mg/dL (8.5-10.1) Glucose (Fingerstick) 99 mg/dL (70-99) 89 mg/dL (70-99) Laboratory Tests Test 05/15/19 11:35 05/15/19 16:58 Glucose (Fingerstick) 99 mg/dL (70-99) 89 mg/dL (70-99) Allergies Allergies Coded Allergies Type Severity Reaction Last Updated Verified No Known Drug Allergies 12/14/15 No Disposition/Orders: D/C to Home Patient Instructions d/c planning 35 min LENY ARGUELLO MD May 16, 2019 10:39
--- NOTE | 2019-05-16 10:40 | DISCH ---
DISCHARGE INSTRUCTIONS Condition on Discharge Condition on Discharge: Stable Activity After Discharge Activity Instructions for Disc: Activity as tolerated, Avoid exertion, Prog ressive ambulation, Walk in house Lifting Instructions after Dis: No heavy lifting, No pulling or pushing, Do not lift >10 pounds Driving Instructions after Dis: Do not drive Weight Bearing Status after Di: As tolerated Diet after Discharge Diet after Discharge: Regular Liquid Texture: Thin Liquid Checks after Discharge Checks after discharge: Check blood press - daily Contacting the DR. after DC Call your doctor for: If your condition worsens Warfarin Follow-Up Warfarin Follow UP: see surgery in 5-6 days LENY ARGUELLO MD May 16, 2019 10:40
[2019-05-16] MEDS ORDERED: LACT1CAP19 PO (10:43)
[2019-05-16 11:00] VITALS: BP 134/89
[2019-05-16] MEDS ORDERED: AMOX1TAB61 PO (11:59)
--- NOTE | 2019-05-16 13:00 | NUR ---
Patient has refused flu vaccine, relating that he will get it at a later time, as did not want to take a chance that it might make him feel unwell until after he has recovered from surgery.
--- NOTE | 2019-05-16 15:07 | PATHOLOGY ---
[facility] Accession Number: [id number] . 01 Material submitted: . appendix - APPENDIX . 01 Clinical history: . None provided . 02 Diagnosis: Appendix, laparoscopic appendectomy: - Acute appendicitis with serosal exudate and hemorrhage. (JPM:keysha; 05/16/2019) MBR 05/16/2019 1255 Local . 02 Comment: There is no evidence of rupture. There is no evidence of malignancy. 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 02 Electronically signed: . Rj Edwards MD, Pathologist NPI- [id number] . 01 Gross description: . The specimen is received in formalin, labeled "Santo, Jeff, appendix" and consists of a curved hemorrhagic appendix measuring 8.4 in length and up to 1.1 in diameter with mesoappendix measuring 1.5 thick. The serosa is burger-brown and hemorrhagic with adhesions. The margin is closed with a line of nadir and inked black. Sectioning reveals hemorrhagic dilated lumen filled with red-brown material. Sat Instructor sections are submitted in A1. (SDY; 05/15/2019) SYU/SYU 05/16/2019 1253 Local . 02 Pathologist provided ICD-10: K35.80 . 02 CPT . 219056 Specimen Comment: A courtesy copy of this report has been sent to Specimen Comment: [phone], , . Specimen Comment: Report sent to ,DR GONZALEZ / DR YOON Specimen Comment: Report sent to Performed at: [address], [place], [place] [id number] MD Dayton Fernando MD Phone: [phone] Performed at: [address] [id number] MD Rj Edwards MD Phone: [phone]
--- NOTE | 2019-05-16 15:26 | NUR ---
Late note: SW consulted for Self Pay. Chart reviewed and discussed with RN. SW provided pt with Self pay resource guide. Pt accepted resources and verbalized understanding.
== END 2019-05-16 13:15 | disposition home or self-care (01) | DRG 342 ==
LOC: ER 23:44 → 5 SOUTH 05-14 01:51
PROVIDERS: ADMIT Internal Medicine; ATTEND Internal Medicine
PROC: 0DTJ4ZZ Resection of Appendix, Percutaneous Endoscopic Approach (ICD-10-PCS; principal; 2019-05-14 09:29)
DX: K35.30 Acute appendicitis with localized peritonitis, without perforation or gangrene (principal); J98.11 Atelectasis; R73.9 Hyperglycemia, unspecified; Z82.49 Family history of ischemic heart disease and other diseases of the circulatory system
CPT/HCPCS: 36415; 74177; 80048; 80053; 80307; 81001; 82962; 83605; 83690; 85025; 88304; 96374; A7015; J0330; J0780; J1100; J1885; J2001; J2270; J2405; J2543; J2704; J2710; J3010; J3490; J7030; J7120; Q9967; 99285-25; G0378